=== PATIENT | male | born 1950 | race Caucasian/White ===

== ENCOUNTER → 2019-12-04 10:47 | Outpatient (BNVA) | payer MEDICARE, OTHER, SELFPAY | PROVIDERS: PCP Internal Medicine; Referring Provider Internal Medicine; Visit Provider Urology | DX: C61 Malignant neoplasm of prostate (principal) | CPT/HCPCS: 99212 ==

== ENCOUNTER 2019-12-24 07:31 | Outpatient (REF) | payer MEDICARE, OTHER, SELFPAY ==
[2019-12-24 07:37] VITALS: BP 135/90; PULSE 73; RESP 16; TEMP 36.1; O2SAT 99
[2019-12-24 07:44] VITALS: BMI 29.7
[2019-12-24 08:19] VITALS: BP 116/77; PULSE 69; RESP 16; O2SAT 97
--- NOTE | 2019-12-24 08:20 | PM.OP ---
Brief Operative Note Date of Service: 12/24/19 Pre-op diagnosis: Prostate cancer Post-op diagnosis: same Procedure: 1. transrectal ultrasound measurement of prostate 2. transrectal ultrasound-guided prostate nerve block 3. Transrectal ultrasound-guided prostate biopsy Surgeon: Jerardo Hendrix MD Anesthesia: local Estimated blood loss (mL): 0 Pathology: other ( a 12 core biopsy) Condition: stable Disposition: same day
--- NOTE | 2019-12-24 08:24 | W.PM.OPN ---
Operative Note Operative Note Date of Service: 12/24/19 Narrative: Preoperative diagnosis: Elevated PSA Postoperative diagnosis: Elevated PSA Procedure: 1. transrectal ultrasound measurement of prostate 2. transrectal ultrasound-guided pudendal nerve block 3. transrectal ultrasound-guided prostate biopsy 12 core Surgeon: Dr. Jerardo Hendrix Anesthetic: Local Indications for procedure: Elevated PSA Prostate Cancer Procedure: After informed consent was verified, the patient was brought into the procedure area and lay left-hand side down on the table. Patient identity confirmed. Perioperative antibiotics confirmed. Gel was placed per rectum Ultrasound probe was placed per rectum The prostate was measured in 3 dimensions Total volume equals 45 gm There were no cystic structures and no calcifications noted and the prostate was homogeneous in nature A ultrasound-guided pudendal nerve block was performed using 10 cc of 1% lidocaine. 8 cc was placed at the base and 2 cc of the apex. A 12 core biopsy was performed with 6 cores each side. Two cores were taken at the apex, mid and base. Cores were spaced between lateral and medial. He tolerated the procedure well. Was able to ambulate to bathroom after 5 minutes. Printed instructions regarding antibiotic use and common side effects such as low-grade temperature and bleeding were given. care was paid to target the right apex median area as highlighted through MRI
== END 2019-12-24 07:32 | disposition home or self-care (01) ==
LOC: HO.MS 07:31
PROVIDERS: PCP Internal Medicine; Visit Provider Urology
PROC: (CPT 55700; principal; 2019-12-24 08:00)
DX: C61 Malignant neoplasm of prostate (principal); G47.30 Sleep apnea, unspecified; Z79.899 Other long term (current) drug therapy
CPT/HCPCS: 55700; 76942; 88305; 88344

== ENCOUNTER → 2020-01-07 09:03 | Outpatient (BNVA) | payer MEDICARE, OTHER, SELFPAY | PROVIDERS: PCP Internal Medicine; Visit Provider Urology | DX: C61 Malignant neoplasm of prostate (principal); G47.30 Sleep apnea, unspecified | CPT/HCPCS: 99212; Q3014 ==

== ENCOUNTER → 2020-04-22 10:02 | Outpatient (BNVA) | payer MEDICARE, OTHER, SELFPAY | PROVIDERS: PCP Internal Medicine; Visit Provider Urology | DX: C61 Malignant neoplasm of prostate (principal) | CPT/HCPCS: 99212 ==

== ENCOUNTER → 2020-06-12 13:41 | Outpatient (BNVA) | payer MEDICARE, OTHER, SELFPAY | PROVIDERS: PCP Internal Medicine; Visit Provider Urology | DX: Z13.89 Encounter for screening for other disorder (principal) | CPT/HCPCS: Q3014 ==

== ENCOUNTER → 2020-10-22 10:43 | Outpatient (BNVA) | payer MEDICARE, OTHER, SELFPAY | PROVIDERS: PCP Internal Medicine; Visit Provider Urology | CPT/HCPCS: Q3014 ==

== ENCOUNTER → 2021-01-20 14:47 | Outpatient (BNVA) | payer MEDICARE, OTHER, SELFPAY | PROVIDERS: PCP Internal Medicine; Visit Provider Urology | DX: C61 Malignant neoplasm of prostate (principal) | CPT/HCPCS: Q3014 ==

== ENCOUNTER → 2021-05-04 08:43 | Outpatient (BNVA) | payer MEDICARE, OTHER, SELFPAY | PROVIDERS: PCP Internal Medicine; Visit Provider Urology | DX: Z13.89 Encounter for screening for other disorder (principal) | CPT/HCPCS: Q3014 ==

== ENCOUNTER → 2021-07-20 13:30 | Outpatient (BNVA) | payer MEDICARE, OTHER, SELFPAY | PROVIDERS: PCP Internal Medicine; Visit Provider Urology | DX: C61 Malignant neoplasm of prostate (principal) | CPT/HCPCS: Q3014 ==

== ENCOUNTER → 2021-10-20 13:03 | Outpatient (BNVA) | payer MEDICARE, OTHER, SELFPAY | PROVIDERS: PCP Internal Medicine; Visit Provider Urology | DX: C61 Malignant neoplasm of prostate (principal); N52.31 Erectile dysfunction following radical prostatectomy | CPT/HCPCS: Q3014 ==

== ENCOUNTER → 2022-01-25 13:56 | Outpatient (BNVA) | payer MEDICARE, OTHER, SELFPAY | PROVIDERS: PCP Internal Medicine; Visit Provider Urology | DX: C61 Malignant neoplasm of prostate (principal); N52.31 Erectile dysfunction following radical prostatectomy | CPT/HCPCS: Q3014 ==

== ENCOUNTER → 2022-05-25 13:41 | Outpatient (BNVA) | payer MEDICARE, OTHER, SELFPAY | PROVIDERS: PCP Internal Medicine; Visit Provider Urology | DX: C61 Malignant neoplasm of prostate (principal); N52.1 Erectile dysfunction due to diseases classified elsewhere; N40.1 Benign prostatic hyperplasia with lower urinary tract symptoms; N13.8 Other obstructive and reflux uropathy | CPT/HCPCS: Q3014 ==

== ENCOUNTER 2022-11-23 11:16 | Outpatient (AMB) | payer MEDICARE, OTHER, SELFPAY ==
--- NOTE | 2022-11-23 11:55 | A.OFFVIS_ITS ---
Intake Intake Visit Reasons: 6m/PSA(set) Intake Note: Patient presets today via tele visit for a follow-up on PSA lab results Medications: sildenafil Allergies to Antibiotic- No Known Allergies Blood Thinner- None Canvas Marker Required: No Information Interpreted: non-clinical & clinical Accompanied by: Self / Same As Patient Allergies No Known Allergies Allergy (Verified 11/23/22 11:57) HPI HPI Comments History of Present Illness Details Bernabe is a very pleasant male. He is a patient of Dr. Johnson. 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 PSA remains undetectable June space out to every 6 months for 5 years Erections are not relevant at this point Prostate cancer: Low volume disease, single intermediate core December 2019 robotic assisted prostatectomy June 2020 [facility] - pT3a unfavorable intermediate Initial therapy included Primary treatment ?Recent labs included 12/25 1.7, 05/26 1.8, 08/25 2.3, - 09/26 <0.1, 01/26 <0.1, 03/30 <0.05, 07/28 <0.1, 10/28 <0.1, 01/27 <0.1, 04/28 <0.1, 10/29 <0.1 Robotic assisted prostatectomy [facility] June 2020 [place] 4+3, negative margins, predominantly nerve-sparing pT3a margin at bladder neck Therapeutic plan: 6 month follow-up lab work Erectile dysfunction Post prostatectomy No longer relevant [facility] Medical History Arthritis Fatty liver Hyperlipidemia Elevated PSA Weak urinary stream Nocturia Benign prostatic hyperplasia with lower urinary tract symptoms Sleep apnea Surgical History History of surgery Review of Systems Const All systems reviewed & are unremarkable except as noted in HPI and below Reports no additional complaints Resp Reports no additional complaints GI Reports no additional complaints Reports as per HPI [facility] Reports no additional complaints Physical Exam Telemedicine evaluation Appropriate responses Regular breathing rate and rhythm HEENT Head: Yes normal to inspection Ears: hearing grossly normal bilaterally Eyes General: appearance normal, both eyes and all related structures Neck Neck: Yes normal visual inspection Chest Chest palpation & inspection: normal inspection of the chest Resp Effort & Inspection: normal respiratory effort and able to speak in complete sentences Assessment & Plan Assessment & Plan (1) Prostate CA: Comment: Ana 4 + 3 on robotic prostatectomy June 2020 Code(s): C61 - Malignant neoplasm of prostate (2) Erectile dysfunction after radical prostatectomy: Code(s): N52.31 - Erectile dysfunction following radical prostatectomy Plan Six month follow-up PSA Patient Instructions: Imaging studies, laboratory and physical exam results were discussed and reviewed in detail. No major barriers to patient understanding were identified. An opportunity to ask questions regarding the treatment plan was provided. All questions were answered. The patient expressed understanding and agreement with the above treatment plan. The patient is aware they should contact our office by phone for worsening of their current condition or the appearance of new urologic symptoms. Compliance is encouraged with any medications and followup testing that is ordered. It is a privilege to participate in the urologic care of your patient. If you have any questions or concerns regarding treatment for the above conditions, or other urologic issues, please do not hesitate to contact me. The office telephone contact is [phone]. This note is constructed using voice recognition software. While every effort mays s been made to ensure accuracy sewing machine repairer errors may have been included. Yours sincerely, Dr Jerardo Hendrix MD, PABLO [facility] - Urology Providers of Expert, Compassionate Care for the Genitourinary System Telehealth Telehealth Location of provider rendering services: practice address Location of patient: address on file Patient Identification confirmed using: Name, : Yes Telehealth method: video Patient verbally consented to treatment: Yes Patient verbally consented to billing insurance company: Yes Patient informed of any privacy concerns related to visit: Yes Coding Level of Care Code Tele Est Pt Level 3 (76795) Diagnoses Prostate CA C61 Erectile dysfunction after radical prostatectomy N52.31
== END 2022-11-23 14:49 | disposition home or self-care (01) ==
LOC: HO.HUSH 11:16
PROVIDERS: PCP Internal Medicine; Visit Provider Urology
DX: N52.31 Erectile dysfunction following radical prostatectomy (principal); Z85.46 Personal history of malignant neoplasm of prostate
CPT/HCPCS: 99213

== ENCOUNTER → 2022-11-23 11:16 | Outpatient (BNVA) | payer MEDICARE, OTHER, SELFPAY | PROVIDERS: PCP Internal Medicine; Visit Provider Urology ==

== ENCOUNTER 2023-05-23 13:49 | Outpatient (AMB) | payer MEDICARE, OTHER, SELFPAY ==
--- NOTE | 2023-05-23 13:50 | MHC.OFFVIS ---
Intake Intake Visit Reasons: 6M PSA(set)Confirmed Intake Note: Patient is Present for Telephone Follow Up Urology Med:Sildenafil Antibiotic Allergy: None Blood Thinner:None Allergies No Known Allergies Allergy (Verified 05/23/23 13:52) Medication List - Last Reconciled 05/23/23 by Jerardo Hendrix MD atorvastatin mg PO cholecalciferol (vitamin D3) 50 mcg PO DAILY omeprazole 20 mg PO DAILY sildenafil (Viagra) 100 mg PO DAILY PRN HPI HPI Comments History of Present Illness Details Bernabe is a very pleasant male. He is a patient of Dr. Johnson. He seen for the following urologic conditions - prostate cancer - erectile dysfunction Telemedicine Evaluation 15 min Consultation [employer] Video Now on q.6 month surveillance PSA remains undetectable Good control of urination Prostate cancer: Low volume disease, single intermediate core December 2019 robotic assisted prostatectomy June 2020 [facility] - pT3a unfavorable intermediate Initial therapy included Primary treatment ?Recent labs included 12/25 1.7, 05/26 1.8, 08/25 2.3, - 09/26 <0.1, 01/26 <0.1, 03/30 <0.05, 07/28 <0.1, 10/28 <0.1, 01/27 <0.1, 04/28 <0.1, 10/29 <0.1, 05/30 <0.1 Robotic assisted prostatectomy [facility] June 2020 [place] 4+3, negative margins, predominantly nerve-sparing pT3a margin at bladder neck Therapeutic plan: 6 month follow-up lab work Erectile dysfunction Post prostatectomy No longer relevant [facility] Medical History Arthritis Fatty liver Hyperlipidemia Elevated PSA Weak urinary stream Nocturia Benign prostatic hyperplasia with lower urinary tract symptoms Sleep apnea Surgical History History of surgery Review of Systems Const All systems reviewed & are unremarkable except as noted in HPI and below Reports no additional complaints Resp Reports no additional complaints GI Reports no additional complaints Reports as per HPI Musc Reports no additional complaints Physical Exam Telemedicine evaluation Appropriate responses Regular breathing rate and rhythm HEENT Head: Yes normal to inspection Ears: hearing grossly normal bilaterally Eyes General: appearance normal, both eyes and all related structures Neck Neck: Yes normal visual inspection Chest Chest palpation & inspection: normal inspection of the chest Resp Effort & Inspection: normal respiratory effort and able to speak in complete sentences Assessment & Plan Assessment & Plan (1) Prostate CA: Comment: Ana 4 + 3 on robotic prostatectomy June 2020 Code(s): C61 - Malignant neoplasm of prostate (2) Erectile dysfunction after radical prostatectomy: Code(s): N52.31 - Erectile dysfunction following radical prostatectomy Plan Six-month follow-up PSA office Orders: Orders Prostate Specific Antigen 6 Months C61 - Malignant neoplasm of prostate Patient Instructions: Imaging studies, laboratory and physical exam results were discussed and reviewed in detail. No major barriers to patient understanding were identified. An opportunity to ask questions regarding the treatment plan was provided. All questions were answered. The patient expressed understanding and agreement with the above treatment plan. The patient is aware they should contact our office by phone for worsening of their current condition or the appearance of new urologic symptoms. Compliance is encouraged with any medications and followup testing that is ordered. It is a privilege to participate in the urologic care of your patient. If you have any questions or concerns regarding treatment for the above conditions, or other urologic issues, please do not hesitate to contact me. The office telephone contact is [phone]. This note is constructed using voice recognition software. While every effort has been made to ensure accuracy senior supplier quality engineer errors may have been included. Yours sincerely, Dr Jerardo Hendrix MD, PABLO [facility] - Urology Providers of Expert, Compassionate Care for the Genitourinary System Telehealth Telehealth Location of provider rendering services: practice address Location of patient: address on file Patient Identification confirmed using: Name, : Yes Telehealth method: video Patient verbally consented to treatment: Yes Patient verbally consented to billing insurance company: Yes Patient informed of any privacy concerns related to visit: Yes Minutes spent on Phone/Video with Pt.: 15 Coding Level of Care Code Tele Est Pt Level 3 (12411) Diagnoses Prostate CA C61 Erectile dysfunction after radical prostatectomy N52.31
== END 2023-05-23 14:11 | disposition home or self-care (01) ==
LOC: HO.HUSH 13:49
PROVIDERS: PCP Internal Medicine; Visit Provider Urology
DX: C61 Malignant neoplasm of prostate (principal); N52.31 Erectile dysfunction following radical prostatectomy
CPT/HCPCS: 99213

== ENCOUNTER → 2023-05-23 13:49 | Outpatient (BNVA) | payer MEDICARE, OTHER, SELFPAY | PROVIDERS: PCP Internal Medicine; Visit Provider Urology ==

== ENCOUNTER 2023-11-21 13:46 | Outpatient (AMB) | payer MEDICARE, OTHER, SELFPAY ==
--- NOTE | 2023-11-21 13:42 | MHC.OFFVIS ---
Intake Visit Reasons: 6M PSA(PSA?)[facility] Intake Note: Patient is Present for 6m PSA Follow Up Urology Med:Sildenafil Antibiotic Allergy: None Blood Thinner:None Roof Technician Required: No Allergies No Known Allergies Allergy (Verified 11/21/23 13:43) HPI Comments Details: Bernabe is a very pleasant male. He is a patient of Dr. Johnson. He seen for the following urologic conditions - prostate cancer - erectile dysfunction Telemedicine Evaluation 15 min Consultation [employer] Video Now on q.6 month surveillance PSA remains undetectable Good control of urination Prostate cancer: Low volume disease, single intermediate core December 2019 robotic assisted prostatectomy June 2020 [facility] - pT3a unfavorable intermediate Initial therapy included Primary treatment ?Recent labs included 12/25 1.7, 05/26 1.8, 08/25 2.3, - 09/26 <0.1, 01/26 <0.1, 03/30 <0.05, 07/28 <0.1, 10/28 <0.1, 01/27 <0.1, 04/28 <0.1, 10/29 <0.1, 05/30 <0.1, 11/29 pending Robotic assisted prostatectomy [facility] June 2020 [place] 4+3, negative margins, predominantly nerve-sparing pT3a margin at bladder neck Therapeutic plan: 6 month follow-up lab work Erectile dysfunction Post prostatectomy No longer relevant [facility] Medical History Arthritis Fatty liver Hyperlipidemia Elevated PSA Weak urinary stream Nocturia Benign prostatic hyperplasia with lower urinary tract symptoms Sleep apnea Surgical History History of surgery Review of Systems Const All systems reviewed & are unremarkable except as noted in HPI and below Reports no additional complaints Resp Reports no additional complaints GI Reports no additional complaints Reports as per HPI Musc Reports no additional complaints Physical Exam Telemedicine evaluation Appropriate responses Regular breathing rate and rhythm HEENT Head: Yes normal to inspection Ears: hearing grossly normal bilaterally Eyes General: appearance normal, both eyes and all related structures Neck Neck: Yes normal visual inspection Chest Chest palpation & inspection: normal inspection of the chest Resp Effort & Inspection: normal respiratory effort and able to speak in complete sentences Telehealth Telehealth Telehealth Platform: [employer] Location of provider rendering services: practice address Location of patient: address on file Patient Identification confirmed using: Name, : Yes Telehealth method: video Patient verbally consented to treatment: Yes Patient verbally consented to billing insurance company: Yes Patient informed of any privacy concerns related to visit: Yes Minutes spent on Phone/Video with Pt.: 15 Assessment & Plan Assessment & Plan (1) Prostate CA: Comment: Ana 4 + 3 on robotic prostatectomy June 2020 Code(s): C61 - Malignant neoplasm of prostate Category: Medical (2) Erectile dysfunction after radical prostatectomy: Code(s): N52.31 - Erectile dysfunction following radical prostatectomy Category: Medical Plan Six-month follow-up Orders: Orders Prostate Specific Antigen 6 Months C61 - Malignant neoplasm of prostate Patient Instructions: Imaging studies, laboratory and physical exam results were discussed and reviewed in detail. No major barriers to patient understanding were identified. An opportunity to ask questions regarding the treatment plan was provided. All questions were answered. The patient expressed understanding and agreement with the above treatment plan. The patient is aware they should contact our office by phone for worsening of their current condition or the appearance of new urologic symptoms. Compliance is encouraged with any medications and followup testing that is ordered. It is a privilege to participate in the urologic care of your patient. If you have any questions or concerns regarding treatment for the above conditions, or other urologic issues, please do not hesitate to contact me. The office telephone contact is [phone]. This note is constructed using voice recognition software. While every effort has been made to ensure accuracy special events assistant errors may have been included. Yours sincerely, Dr Jerardo Hendrix MD, PABLO [facility] - Urology Providers of Expert, Compassionate Care for the Genitourinary System Coding Level of Care Code Tele Est Pt Level 3 (78406) Diagnoses Prostate CA C61 Erectile dysfunction after radical prostatectomy N52.31
== END 2023-11-21 15:23 | disposition home or self-care (01) ==
LOC: HO.HUSH 13:46
PROVIDERS: PCP Internal Medicine; Visit Provider Urology
DX: C61 Malignant neoplasm of prostate (principal); N52.31 Erectile dysfunction following radical prostatectomy
CPT/HCPCS: 99213

== ENCOUNTER → 2023-11-21 13:46 | Outpatient (BNVA) | payer MEDICARE, OTHER, SELFPAY | PROVIDERS: PCP Internal Medicine; Visit Provider Urology ==

== ENCOUNTER 2024-05-29 10:42 | Outpatient (AMB) | payer MEDICARE, OTHER, SELFPAY ==
--- NOTE | 2024-05-29 10:42 | A.OFFVIS_ITS ---
Intake Visit Reasons: 6M PSA(psa?) Intake Note: Patient is present for 6M/PSA Urology Medication:SILDENAFIL Antibiotic Allergy:NONE Blood Thinner:NONE Air Control/Anti Air Warfare Officer Required: No Allergies No Known Allergies Allergy (Verified 05/29/24 10:44) HPI Comments Details: Bernabe is a very pleasant male. He is a patient of Dr. Johnson. He seen for the following urologic conditions - prostate cancer - erectile dysfunction Telemedicine Evaluation 15 min Consultation [employer] Video Now on q.6 month surveillance PSA remains undetectable Good control of urination Due to pT3a disease will require six-month follow-up for 10 years Prostate cancer: Low volume disease, single intermediate core December 2019 robotic assisted prostatectomy June 2020 [facility] - pT3a unfavorable intermediate Initial therapy included Primary treatment ?Recent labs included 12/25 1.7, 05/26 1.8, 08/25 2.3, - 09/26 <0.1, 01/26 <0.1, 03/30 <0.05, 07/28 <0.1, 10/28 <0.1, 01/27 <0.1, 04/28 <0.1, 10/29 <0.1, 05/30 <0.1, 11/29 <0.1, 05/31 <0.1 Robotic assisted prostatectomy [facility] June 2020 [place] 4+3, negative margins, predominantly nerve-sparing pT3a margin at bladder neck Therapeutic plan: 6 month follow-up lab work Erectile dysfunction Post prostatectomy No longer relevant [facility] Medical History Arthritis Fatty liver Hyperlipidemia Elevated PSA Weak urinary stream Nocturia Benign prostatic hyperplasia with lower urinary tract symptoms Sleep apnea Surgical History History of surgery Review of Systems Const All systems reviewed & are unremarkable except as noted in HPI and below Reports no additional complaints Resp Reports no additional complaints GI Reports no additional complaints Reports as per HPI Musc Reports no additional complaints Physical Exam Telemedicine evaluation Appropriate responses Regular breathing rate and rhythm HEENT Head: Yes normal to inspection Ears: hearing grossly normal bilaterally Eyes General: appearance normal, both eyes and all related structures Neck Neck: Yes normal visual inspection Chest Chest palpation & inspection: normal inspection of the chest Resp Effort & Inspection: normal respiratory effort and able to speak in complete sentences Telehealth Telehealth Telehealth Platform: [employer] Location of provider rendering services: practice address Location of patient: address on file Patient Identification confirmed using: Name, : Yes Telehealth method: video Patient verbally consented to treatment: Yes Patient verbally consented to billing insurance company: Yes Patient informed of any privacy concerns related to visit: Yes Minutes spent on Phone/Video with Pt.: 15 Assessment & Plan Assessment & Plan (1) Prostate CA: Comment: Ana 4 + 3 on robotic prostatectomy June 2020 Code(s): C61 - Malignant neoplasm of prostate Category: Medical (2) Erectile dysfunction after radical prostatectomy: Code(s): N52.31 - Erectile dysfunction following radical prostatectomy Category: Medical Plan Six-month follow-up Orders: Orders Prostate Specific Antigen 6 Months C61 - Malignant neoplasm of prostate Patient Instructions: This note is constructed using voice recognition software. While every effort has been made to ensure accuracy police commissioner errors may have been included. Imaging studies, laboratory and physical exam results were discussed and reviewed in detail. No major barriers to patient understanding were identified. An opportunity to ask questions regarding the treatment plan was provided. All questions were answered. The patient expressed understanding and agreement with the above treatment plan. The patient is aware they should contact our office by phone for worsening of their current condition or the appearance of new urologic symptoms. Compliance is encouraged with any medications and followup testing that is ordered. It is a privilege to participate in the urologic care of your patient. If you h ave any questions or concerns regarding treatment for the above conditions, or other urologic issues, please do not hesitate to contact me. The office telephone contact is [phone]. Sincerely, Dr Jerardo Hendrix MD, PABLO [facility] - Urology Compassionate Specialist Care for the Genitourinary System Coding Level of Care Code Tele Est Pt Level 3 (85099) Complex EM visit Add On G2211 Diagnoses Prostate CA C61 Erectile dysfunction after radical prostatectomy N52.31
--- OUTSIDE RECORDS SUMMARY | 2024-05-29 12:42 | XMS_ITS ---
Author Organization [facility] Address [address] [place] [address] Care Team Providers Care Final Inspector Paper Name Role Phone JOHNSON, VISHNU Primary Care Provider [phone] REASON FOR REFERRAL Reason [facility] Diagnosis 1 Encounter for examin ation of ears and hearing without abnormal findings (Z01.10) Referral Organization [facility] Referring Provider First Name VISHNU Referring Provider Last Name JOHNSON Referring Provider Speciality Internal M edicine Referred Provider Specialty Ear, nose an d throat surgeon General Notes Amber Contreras 11:24:06 AM > Referral and attachments faxed to [phone] and pt given phone [phone] to call and make an appt. Clinical Notes Debi Sierra 02:53:43 PM > Scheduled for 05/31 at 9:45 am. pt aware Referral Priority Routine Reason [facility] and Rectal [facility] ([facility]) Diagnosis 1 Bleeding (R58) Referral Organization [facility] Referring Provider First Name VISHNU Referring Provider Last Name JOHNSON Referring Provider Speciality Internal M edicine Referred Provider Specialty Colorectal S urgery General Notes Amber Contreras 11:27:09 AM > Referral and attachments faxed to [phone] and pt given phone [phone] to call and make an appt. Clinical Notes Debi Sierra 01:49:17 PM > Patient was seen on 04/15 Referral Priority Routine REASON FOR VISIT patient presents for MWV with labs; pt has ongoing concerns of hemorrhoids; also concerned with possible hearing loss; pt states he has HCP, asked pt to bring in for us to place in chart MEDICATIONS Medication SIG (Take, Route, Frequency, Duration) Notes Start Date End Date Status D3 Super Strength 50 MCG (1999) TAKE 1 CAPSULE BY MOUTH EVERY DAY for 90 Active ZyrTEC Allergy 10 MG 1 tablet Orally Onc e a day Active buPROPion HCl 75 MG 2 tablets Orally Onc e a day for 90 days 10/10/2023 Active Atorvastatin Calcium 40 MG TAKE 1 TABLET BY MOUTH EVERY DAY for 90 Active Omeprazole 20 MG TAKE 1 CAPSULE BY LA UTH 30 MINUTES BEFORE MORNING MEAL every other day for 90 days Active Flonase Active Aspir-81 81 MG 1 tablet Orally Once a day for 30 day(s) Active Sildenafil Citrate 20 MG 1 tablet Orally Once a day Active SOCIAL HISTORY Tobacco Use: Social History Observation Description Date Details (start date - stop date) Former Smoker NA - NA Sex Assigned At : Social History Observation Description Sex Assigned At Unknown Tobacco Use/Smoking Question Answer Notes Are you a former smoker Section Notes: does not smoke or abuse alco hol VITAL SIGNS Blood pressure systolic 136 mm Hg 04/04/19 25 Blood pressure diastolic 76 mm Hg 025 Heart Rate 73 /min 04/04/2024 Height 70 in 04/04/2024 Weight 213.7 lbs 04/04/2024 BMI 30.66 kg/m2 04/04/2024 Oximetry 98 % 04/04/2024 Encounters Encounter Location Date Provider Diagnosis [place] [id number] [address] 04/04/2024 DIGNASTEVIE JOHNSON Hypolipidemia E78.6 and Annual physical exam Z00.00 ASSESSMENTS Encounter Date Diagnosis Assessment Notes Treatment Notes Treatment Clinical Notes Section Notes 04/04/2024 Hypolipidemia (ICD-10 - E78.6) He patient seen and examined. Comprehensive discussion was done on the following. 1. Nutrition: It is important to follow a healthy diet based on lots of vegetables and legumes and good fat. Avoid processed food and processed carbohydrates. Learn to prepare your own meals. Learn to read labels and avoid high fructose corn syrup, processed chemicals added to increase shelf life and preprepared meals. Avoid fast foods. Learn to eat slowly and plan meals for a week. Try to count calories and be mindful off daily calorie intake. Get into the habit of keeping an eye on your weight by using an appropriate scale. Learn to log exercise and discussed fitness Apps like [employer] which can help keep log off calories taken versus calories burned. Local food should be preferred. Discussed Dirty Dozen Versus Clean Fifteen. Discussed healthy supplements like fish oil, Tumeric, Curcumin, Melatonin, Resveratrol, Probiotics, Vitamin-D, Alpha-Lipoic acid, Vitamin-D and coconut oil. 2. It is important to exercise regularly. Is a good habit to walk at least 30-45 minutes a day. Gentle weightlifting with standard precautions to protect the back. Finding activity like cycling or hiking and get into the habit of engaging in it. Stretching before and after the exercises important. It is also important to contact me if there are any problems like shortness of breath, chest pain, back pain and joint or muscle pain associated with the exercise. 3. Discussed age appropriate screening guidelines. Colonoscopy needs to start at age 50 with stool for occult blood as appropriate. There is a new test that can test for genetic abnormalities in the stool sample. This would not replace a colonoscopy but could be used as a screening tool for patients who do not want a colonoscopy. We discussed the importance of early detection of colon cancer. 4. Discussed current PSA screening. PSA screening can be done in most patients between age 50 and 65. However early detection of prostate cancer needs to carefully be balanced with complications with treatment. These include incontinence, impotence etc. Each patient should decide if they would like to have this test. 5. Discussed safe driving and no use of smart phone while driving 6. Age-appropriate immunizations were discussed. A tetanus booster is needed every 10 years. Flu vaccine is recommended every year just before the start of the flu season. Shingles vaccine is recommended after age 50 but not all insurances cover it. Pneumonia vaccine is given after age 65 unless there are certain comorbidities for which it is started earlier. 7. Diagnostic labs were discussed. These could include CBC CMP and lipids with fasting blood glucose and insulin levels. Vitamin D and hemoglobin A1c testing might be appropriate. 8. Patient has bupropion and mental health resources if he wants to use it8. Currently does not want to use Bupropion. We need to follow-up on whether he gets the RSV or shingles vaccine. He will follow-up in 6 months with fasting labs note that he has history of prostate cancer and PSA was undetectable 04/04/2024 Annual physical exam (ICD-10 - Z00.00) He patient seen and examined. Comprehensive discussion was done on the following. 1. Nutrition: It is important to follow a healthy diet based on lots of vegetables and legumes and good fat. Avoid processed food and processed carbohydrates. Learn to prepare your own meals. Learn to read labels and avoid high fructose corn syrup, processed chemicals added to increase shelf life and preprepared meals. Avoid fast foods. Learn to eat slowly and plan meals for a week. Try to count calories and be mindful off daily calorie intake. Get into the habit of keeping an eye on your weight by using an appropriate scale. Learn to log exercise and discussed fitness Apps like [employer] which can help keep log off calories taken versus calories burned. Local food should be preferred. Discussed Dirty Dozen Versus Clean Fifteen. Discussed healthy supplements like fish oil, Tumeric, Curcumin, Melatonin, Resveratrol, Probiotics, Vitamin-D, Alpha-Lipoic acid, Vitamin-D and coconut oil. 2. It is important to exercise regularly. Is a good habit to walk at least 30-45 minutes a day. Gentle weightlifting with standard precautions to protect the back. Finding activity like cycling or hiking and get into the habit of engaging in it. Stretching before and after the exercises important. It is also important to contact me if there are any problems like shortness of breath, chest pain, back pain and joint or muscle pain associated with the exercise. 3. Discussed age appropriate screening guidelines. Colonoscopy needs to start at age 50 with stool for occult blood as appropriate. There is a new test that can test for genetic abnormalities in the stool sample. This would not replace a colonoscopy but could be used as a screening tool for patients who do not want a colonoscopy. We discussed the importance of early detection of colon cancer. 4. Discussed current PSA screening. PSA screening can be done in most patients between age 50 and 65. However early detection of prostate cancer needs to carefully be balanced with complications with treatment. These include incontinence, impotence etc. Each patient should decide if they would like to have this test. 5. Discussed safe driving and no use of smart phone while driving 6. Age-appropriate immunizations were discussed. A tetanus booster is needed every 10 years. Flu vaccine is recommended every year just before the start of the flu season. Shingles vaccine is recommended after age 50 but not all insurances cover it. Pneumonia vaccine is given after age 65 unless there are certain comorbidities for which it is started earlier. 7. Diagnostic labs were discussed. These could include CBC CMP and lipids with fasting blood glucose and insulin levels. Vitamin D and hemoglobin A1c testing might be appropriate. 8. Patient has bupropion and mental health resources if he wants to use it8. Currently does not want to use Bupropion. We need to follow-up on whether he gets the RSV or shingles vaccine. He will follow-up in 6 months with fasting labs note that he has history of prostate cancer and PSA was undetectable PLAN OF TREATMENT Pending Test Test Name Order Date COMPREHENSIVE METABOLIC PANEL 04/04/2024 CBC (INCLUDES DIFF/PLT) 04/04/2024 Referrals Referral Date Details [facility] ([facility] ([facility]) Next Appt Details Provider Name:NINFA HERCULES, 09/25/2024 08:00:00 AM, [address] [facility], [facility] [address], [place], [address], Progress Notes * SARWAT JUAREZ WDOB:[birth year] (73 yo M)Acc No.[id number]:04/04/2024 Progress Note Patient:??SARWAT JUAREZ W Provider:??Vishnu Johnson MD :1950?Age:73 Y?Sex:Javi turcios Date:04/04/2024 Address: [facility], [id number] Subjective: * Chief Complaints: * ?1. patient presents fo r MWV with labs; pt has ongoing concerns of hemorrhoids; also concerned with possible hearing loss; pt states he has HCP, asked pt to bring in for us to place in chart. * HPI: ?Constitutional:? Patient seen and examined. Chart was reviewed and edited. Medications were reviewed. Problem list reviewed updated. Allergies reviewed. Social history reviewed. Reviewed recent labs and imaging validation consultant notes. 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 Patient needs to get updated on shingles vaccine and RSV vaccine he is reluctant but after detailed discussion is willing to consider it at the pharmacy. Patient has bilateral osteoarthritis of the knees status post left knee surgery and right knee injections. This is currently stable. Patient continues to have issues with healing and will be referred to a hearing evaluation. Patient also has issues with the hemorrhoids and will see colorectal surgery. Healthcare proxy was discussed again with the patient he continues to be agitated. His agitation stems from his and her attitude since getting COVID. He believes she has long COVID. There is a lot of frustration and he is also suffering from loneliness and I recommended to reach out to other men friends. Patient does enjoy fishing and is considering joining a senior center.PHQ-9 was 5 ?Audit used And is negative and scanned separately healthcare proxy ?In [place] order of life-sustaining treatment discussed. * ROS:?Constitutional: +Headaches, Patient denies any excessive fatigue with exercise, no weight loss, no fever and no night sweats ???Eyes: No eye discharge, no itching, no redness. ???Ear nose throat: No sore throat, +postnasal drip, +runny nose, +congestion, Sneezing ???Cardiovascular: No chest pain, no shortness of breath, no dyspnea on exertion, no PND, no orthopnea, no irregular pulse ???Respiratory: No chronic cough, no hemoptysis, no sputum, no wheezing ???GI, no diarrhea, no constipation no blood in the stools, no pain associated with eating, no indigestion ???Genitourinary: No painful urination no hesitancy no blood in the urine ???Musculoskeletal, no limitations to walking and running, no joint deformity, no joint stiffness, no chronic back pain, no noise with joint movement ???Integumentary, no new skin rash. No new changes in skin moles ???Neurological: No history of seizures, memory loss, No language dysfunction, No inability to concentrate, no localized weakness, no sensation loss, no confusion ???Psychiatric: No depression, no suicidal thoughts, no anxiety ???Endocrine: No polyuria no polyphagia or polydipsia, no heat intolerance no cold intolerance ???Hematological: No easy bruising or Lymph node swelling. * Medical History:??Hyperlipid emia, Acid reflux, Prostate ca. * Surgical History:??carpal tu nnel release , colonoscopy Dr Antonio repeat 10 yrs 07/14/2008. * Family History:??Father: dec eased, diagnosed with Unspecified heart disease.??Spouse: alive.??Mother: , diagnosed with Diabetes mellitus without mention of complication, type II or unspecified type, not stated as uncontrolled.?? no significant family history. * Social History:?Tobacco Use:??Tobacco Use/Smoking??Are you a??former smoker.?does not smoke or abuse alcohol. * Medications:??Taking Flonase , Taking Omeprazole 20 MG Capsule Delayed Release TAKE 1 CAPSULE BY MOUTH 30 MINUTES BEFORE MORNING MEAL every other day , Taking Sildenafil Citrate 20 MG Tablet 1 tablet Orally Once a day , Taking Aspir-81 81 MG Tablet Delayed Release 1 tablet Orally Once a day , Taking ZyrTEC Allergy 10 MG Tablet 1 tablet Orally Once a day , Taking D3 Super Strength 50 MCG (2000 UT) Capsule TAKE 1 CAPSULE BY MOUTH EVERY DAY , Taking Atorvastatin Calcium 40 MG Tablet TAKE 1 TABLET BY MOUTH EVERY DAY , Taking buPROPion HCl 75 MG Tablet 2 tablets Orally Once a day , Discontinued Paxlovid (300/100) 20 x 150 MG & 10 x 100MG Tablet Therapy Pack 3 tablets Orally Twice a day , Medication List reviewed and reconciled with the patient Objective: * Vitals:??HR:73/min, BP:136/7 6mm Hg, Wt:213.7lbs, BMI:30.66Index, Ht: 70 in, Oxygen sat %:98%. * Physical Examination:?Patient seen and examined ?Vitals noted ?Head and ENT: PERRLA EOMI, neck supple, good range of motion, thyroid within normal limits. No sinus tenderness. ?Cardiovascular system S1 and S2 with no murmur or gallop or rubs. ?Lungs clear to percussion and auscultation ?Abdomen soft positive bowel sounds no hepatosplenomegaly ?Extremities no edema. ?Neuro: No gross deficit, sensation and power intact. . Reflexes appear normal ?Gait appears age-appropriate ?Skin exam shows no rashes. Assessment: * Assessment: 1.??Annual physical exam - Z 00.00 (Primary)??2.??Hypolipidemia - E78.6?? He patient seen and examined . Comprehensive discussion was done on the following. 1. Nutrition: It is important to follow a healthy diet based on lots of vegetables and legumes and good fat. Avoid processed food and processed carbohydrates. Learn to prepare your own meals. Learn to read labels and avoid high fructose corn syrup, processed chemicals added to increase shelf life and preprepared meals. Avoid fast foods. Learn to eat slowly and plan meals for a week. Try to count calories and be mindful off daily calorie intake. Get into the habit of keeping an eye on your weight by using an appropriate scale. Learn to log exercise and discussed fitness Apps like [employer] which can help keep log off calories taken versus calories burned. Local food should be preferred. Discussed Dirty Dozen Versus Clean Fifteen. Discussed healthy supplements like fish oil, Tumeric, Curcumin, Melatonin, Resveratrol, Probiotics, Vitamin-D, Alpha-Lipoic acid, Vitamin-D and coconut oil. 2. It is important to exercise regularly. Is a good habit to walk at least 30-45 minutes a day. Gentle weightlifting with standard precautions to protect the back. Finding activity like cycling or hiking and get into the habit of engaging in it. Stretching before and after the exercises important. It is also important to contact me if there are any problems like shortness of breath, chest pain, back pain and joint or muscle pain associated with the exercise. 3. Discussed age appropriate screening guidelines. Colonoscopy needs to start at age 50 with stool for occult blood as appropriate. There is a new test that can test for genetic abnormalities in the stool sample. This would not replace a colonoscopy but could be used as a screening tool for patients who do not want a colonoscopy. We discussed the importance of early detection of colon cancer. 4. Discussed current PSA screening. PSA screening can be done in most patients between age 50 and 65. However early detection of prostate cancer needs to carefully be balanced with complications with treatment. These include incontinence, impotence etc. Each patient should decide if they would like to have this test. 5. Discussed safe driving and no use of smart phone while driving 6. Age-appropriate immunizations were discussed. A tetanus booster is needed every 10 years. Flu vaccine is recommended every year just before the start of the flu season. Shingles vaccine is recommended after age 50 but not all insurances cover it. Pneumonia vaccine is given after age 65 unless there are certain comorbidities for which it is started earlier. 7. Diagnostic labs were discussed. These could include CBC CMP and lipids with fasting blood glucose and insulin levels. Vitamin D and hemoglobin A1c testing might be appropriate. 8. Patient has bupropion and mental health resources if he wants to use it8. Currently does not want to use Bupropion. We need to follow-up on whether he gets the RSV or shingles vaccine. He will follow-up in 6 months with fasting labs note that he has history of prostate cancer and PSA was undetectable. Plan: * Treatment: 2.??Others? Referral To:Ear, nose and throat surgeon ?Reason:[facility] ([facility]) ? Referral To:Colorectal Surgery ?Reason:[facility] ([facility]) * Procedure Codes:??G0439 HARESH AL WELLNESS VST; PPS SUBSQT VST, G0444 ANNUAL DEPRESSION SCREENING 15 MIN, Modifiers: 59 , G0442 ANNUAL ALCOHOL MISUSE SCREEN 15 MIN, Modifiers: 59 , 42659 ADVNCD CARE PLAN 30 MIN, Modifiers: 33 * Images: Billing Information: * Visit Code:?? * Procedure Codes:?? G0439 ANNUAL WELLNESS VST; PPS SUBSQT VST. G0444 ANNUAL DEPRESSION SCREENING 15 MIN. Modifiers: 59 G0442 ANNUAL ALCOHOL MISUSE SCREEN 15 MIN. Modifiers: 59 [id number] ADVNCD CARE PLAN 30 MIN. Modifiers: 33 Care Plan Details* * Sign off status: Completed true * Provider:??Vishnu Johnson MD Date:??04/04 History and Physical Notes * HPI (History of Present Illness) Category Sub-Category Detail Notes Category Not es Constitutional Patient seen and examined. Chart was reviewed and edited. Medications were reviewed. Problem list reviewed updated. Allergies reviewed. Social history reviewed. Reviewed recent labs and imaging validation consultant notes. 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 Patient needs to get updated on shingles vaccine and RSV vaccine he is reluctant but after detailed discussion is willing to consider it at the pharmacy. Patient has bilateral osteoarthritis of the knees status post left knee surgery and right knee injections. This is currently stable. Patient continues to have issues with healing and will be referred to a hearing evaluation. Patient also has issues with the hemorrhoids and will see colorectal surgery. Healthcare proxy was discussed again with the patient he continues to be agitated. His agitation stems from his and her attitude since getting COVID. He believes she has long COVID. There is a lot of frustration and he is also suffering from loneliness and I recommended to reach out to other men friends. Patient does enjoy fishing and is considering joining a senior center.PHQ-9 was 5 Audit used And is negative and scanned separately healthcare proxy In [place] order of life-sustaining treatment discussed Physical Examination Category Sub-Category Detail Notes Section Note s Patient seen and examined Vitals noted Head and ENT: PERRLA EOMI, neck supple, good range of motion, thyroid within normal limits. No sinus tenderness. Cardiovascular system S1 and S2 with no murmur or gallop or rubs. Lungs clear to percussion and auscultation Abdomen soft positive bowel sounds no hepatosplenomegaly Extremities no edema. Neuro: No gross deficit, sensation and power intact. . Reflexes appear normal Gait appears age-appropriate Skin exam shows no rashes Consultation Request Notes Referral Date Referring Provider Referred Provider Not es 04/04/2024 V[facility] JOHNSON [facility] 04/04/2024 VISHNU JOHNSON , [facility]a [facility] ([facility])
--- OUTSIDE RECORDS SUMMARY | 2024-05-29 12:42 | XMS_ITS ---
Author Organization [facility] Address [address] [place] [address] Care Team Providers Care Embosser Apprentice Name Role Phone ZHEN JARRETT Primary Care Provider REASON FOR VISIT Bloodwork Encounters Encounter Location Date Provider Diagnosis [facility] [address] [address] 02/28/2024 ZHEN JARRETT Hyperlipidemia, unspecified E78.5 ; Essential (primary) hypertension I10 ; Benign prostatic hyperplasia with lower urinary tract symptoms N40.1 ; Adult general medical exam Z00.00 ; Morbid obesity E66.01 and Vitamin D deficiency E55.9 ASSESSMENTS Encounter Date Diagnosis Assessment Notes Treatment Notes Treatment Clinical Notes Section Notes 02/28/2024 Hyperlipidemia, unspecified (ICD-10 - E78.5) 02/28/2024 Essential (primary) hypertension (ICD-10 - I10) 02/28/2024 Benign prostatic hyperplasia with lower urinary tract symptoms (ICD-10 - N40.1) 02/28/2024 Adult general medical exam (ICD-10 - Z00.00) 02/28/2024 Morbid obesity (ICD-10 - E66.01) 02/28/2024 Vitamin D deficiency (ICD-10 - E55.9) PLAN OF TREATMENT Pending Test Test Name Order Date LIPID PANEL, STANDARD 02/28/2024 COMPREHENSIVE METABOLIC PANEL 02/28/2024 CBC (INCLUDES DIFF/PLT) 02/28/2024 URINALYSIS, COMPLETE W/REFLEX TO CULTURE 02/28/2024 PSA (FREE AND TOTAL) 02/28/2024 TSH 02/28/2024 VITAMIN D,25-OH,TOTAL,IA 02/28/2024 Next Appt Details Provider Name:NINFA HERCULES, 09/25/2024 08:00:00 AM, [address] [facility], [facility] [address], [place], [address], Progress Notes * SARWAT JUAREZ WDOB:[birth year] (73 yo M)Acc No.[id number]:02/28/2024 Patient:??SARWAT JUAREZ W :1950?Age:73 Y?Sex:Javi turcios Address:[address] [place] [address] [place] [address] Subjective: * Chief Complaints: * ?Bloodwork * Medical History:?? * Surgical History:?? * Hospitalization/Major Diagno stic Procedure:?? * Medications:?? Objective: Assessment: * Assessment: 1.??Hyperlipidemia, unspecif ied - E78.5??2.??Essential (primary) hypertension - I10??3.??Benign prostatic hyperplasia with lower urinary tract symptoms - N40.1??4.??Adult general medical exam - Z00.00??5.??Morbid obesity - E66.01??6.??Vitamin D deficiency - E55.9?? Plan: * Treatment: 2.??Benign prostatic hyperpl diana with lower urinary tract symptoms?LAB: PSA (FREE AND TOTAL) 3.??Adult general medical ex am?LAB: COMPREHENSIVE METABOLIC PANEL ?LAB: CBC (INCLUDES DIFF/PLT) ?LAB: URINALYSIS, COMPLETE W/REFLEX TO CULTURE ?LAB: TSH 4.??Morbid obesity?LAB: COMPREHENSIVE METABOLIC PANEL ?LAB: CBC (INCLUDES DIFF/PLT) 5.??Vitamin D deficiency?LAB: VITAMIN D,25-OH,TOTAL,IA * Procedure Codes:?? * true * Date:??
--- OUTSIDE RECORDS SUMMARY | 2024-05-29 12:42 | XMS_ITS ---
Author Name [facility] Organization Unknown History of Medication Use Medication Directions Dispensed Refills Start Date End Date Stat hydrocortisone (ANUSOL-HC) 2.5 % rectal cream Insert into the rectum 2 (two) times a day for 7 days. Do not use longer than 7 days in a row. 04/15/2024 active fluticasone propionate (FLONASE) 50 mcg/actuation nasal spray USE 1-2 SPRAYS BY INTRANASAL ROUTE EVERY DAY IN EACH NOSTRIL NEEDED 05/25/2023 active aspirin 81 mg chewable tablet Chew 1 tablet (81 mg total). active atorvastatin (LIPITOR) 40 mg tablet Take 1 tablet (40 mg total) by mouth. active cetirizine (ZyrTEC) 10 mg capsule Take by mouth. active cholecalciferol (VITAMIN D-3) 5,000 Units tablet Take 1,000 Units by mouth daily. active omeprazole (PriLOSEC) [address] capsule Take 1 capsule (20 mg total) by mouth daily. active polyvinyl alcohol-povidone, PF, (ARTIFICIAL TEARS) 1.4-0.6 % ophthalmic solution as needed for Dryness active Problems Problem Status Onset Date Problem Type Date of Resolution Source Bleeding active EncounterDiagnosisAct [facility]NEMG Rectal bleeding active EncounterDiagnosisAct [facility] Incomplete defecation active EncounterDiagnosisAct [facility]_THN [facility] Grade II internal hemorrhoids active EncounterDiagnosisAct [facility]_THN [facility]G Encounters Encounter Type Encounter Reason Primary Diagnosis Location Date Ambulatory Rectal Bleeding Hemorrhage of an us and rectum [facility] 04/15/2024 Care Team Organization Name Specialty Phone Email Start Date End Da te [facility] Vishnu Johnson Primary Care 12/2024 [facility] Vishnu Johnson Primary Care 12/2024 [facility] 04/05/2024
--- OUTSIDE RECORDS SUMMARY | 2024-05-29 12:43 | XMS_ITS | Clinical Summary ---
Author Organization [facility] Address [address] [place] [address] Care Team Providers Care Tool Polisher Name Role Phone Vishnu Johnson MD Primary Care Provider [phone] Medications aspirin 81 mg chewable tablet Chew 1 tablet (81 mg total). Active atorvastatin (LIPITOR) 40 mg tablet Take 1 tablet (40 mg total) by mouth. Active cetirizine (ZyrTEC) 10 mg capsule Take by mouth. Activ e cholecalciferol (VITAMIN D-3) 5,000 Units tablet Take 1,000 Units by mouth daily. Active fluticasone propionate (FLONASE) 50 mcg/actuation nasal spray USE 1-2 SPRAYS BY INTRANASAL ROUTE EVERY DAY IN EACH NOSTRIL NEEDED 4 Active omeprazole (PriLOSEC) [address] capsule Take 1 capsule (20 mg total) by mouth daily. Active polyvinyl alcohol-povidon e, PF, (ARTIFICIAL TEARS) 1.4-0.6 % ophthalmic solution as needed for Dryness Active hydrocortisone (ANUSOL-HC) 2.5 % rectal cream Insert into the rectum 2 (two) times a day for 7 days. Do not use longer than 7 days in a row. 28 g 1 5 Active Encounters Date Type Department Care Team Description 04/15/2024 4:00 PM EDT Office Visit [facility] [address] [place] [address] Adamaris Landeros PA Rectal bleeding (Primary Dx); Bleeding; Grade II internal hemorrhoids; Incomplete defecation from Last 3 Months Surgical History Surgery Date Site/Laterality Comments CARPAL TUNNEL RELEASE PROSTATECTOMY TOTAL KNEE ARTHROPLASTY Medical History Medical History Date Comments Prostate cancer ([facility] V24, [facility] V28) HLD (hyperlipidemia) GERD (gastroesophageal reflux disease) Social History Tobacco Use Types Packs/Day Years Used Date Smoking Tobacco: Never Smokeless Tobacco: Never Tobacco Cessation:Counseling Given: Not Answered Alcohol Use Standard Drinks/Week Comments Yes 0 (1 standard drink = 0.6 oz pur e alcohol) Sex and Gender Information Value Date Recorded Sex Assigned at Not on file Legal Sex Male 11:19 AM EST Gender Identity Not on file Sexual Orientation Not on file Obstetrics History Last Filed Vital Signs Vital Sign Reading Time Taken Comments Blood Pressure 122/72 04/15/2024 4:07 PM EDT Pulse - - Temperature - - Respiratory Rate - - Oxygen Saturation - - Inhaled Oxygen Concentration - - Weight 95.7 kg (211 lb) 04/15/2024 4:07 PM EDT Height 177.8 cm (5' 10 ) 04/15/2024 4:07 PM EDT Body Mass Index 30.28 04/15/2024 4:07 PM EDT Plan of Treatment Health Maintenance Due Date Last Done Comments COVID-19 Vaccine (#1) 1955 DTaP,Tdap,and Td Vaccines (1 - Tdap) 11/04/1971 Zoster Vaccines (1 of 2) 11/04/1971 Pneumococcal Vaccine: 50+ Years (2 of 2 - PCV) 05/31/2019 05/30/2018 Cholesterol Screening (Lipid Panel) 01/04/2022 Colorectal Cancer Screening: Colonoscopy 01/04/2022 Depression Screening 01/04/2022 Falls Risk Assessment 01/04/2022 Hepatitis C Screening 01/04/2022 Social Influencers of Health Screening 01/04/2022 Medicare Annual Wellness Visit 11/22/2022 11/22/2021 Influenza Vaccine (Season Ended) 2024 11/22/2021, 11/05/2020, 12/10/2019, Additional history exists RSV Immunization Adult Patients (1 - 1-dose 75+ series) 11/04/2027 HIB Vaccines Aged Out No longer eligi ble based on patient's age to complete this topic HPV Vaccines Aged Out No longer eligi ble based on patient's age to complete this topic Hepatitis A Vaccines Aged Out No long er eligible based on patient's age to complete this topic Hepatitis B Vaccines Aged Out No long er eligible based on patient's age to complete this topic IPV Vaccines Aged Out No longer eligi ble based on patient's age to complete this topic MMR Vaccines Aged Out No longer eligi ble based on patient's age to complete this topic Meningococcal ACWY Vaccine Aged Out N o longer eligible based on patient's age to complete this topic Meningococcal B Vaccine Aged Out No l onger eligible based on patient's age to complete this topic RSV Immunization Patients Under 20 months Aged Out No longer eligible based on patient's age to complete this topic Varicella Vaccines Aged Out No longer eligible based on patient's age to complete this topic Insurance MEDICARE [facility] Advance Directives Documents on File Type Date Recorded Patient Complementary Health Therapists Expl anation Health Care Decision (hx) 02/14/2019 AD DELACRUZ DIRECTIVE Health Care Decision (hx) 02/14/2019 AD DELACRUZ DIRECTIVE Care Teams Tool Polisher Relationship Specialty Start Date End Date Vishnu Johnson MD [address] [place] [id number] PCP - General Internal Medicine 04/12/24
--- OUTSIDE RECORDS SUMMARY | 2024-05-29 12:43 | XMS_ITS | Patient Health Record ---
Author Organization [facility] Address [address] [place] [address] Care Team Providers Care Vp Informatics Name Role Phone ZHEN JOHNSON Primary Care Provider [phone] Raven Goff Unavailable [phone] MAYNORSACHIN Diamond Unavailable [phone] ALLERGIES No Known Allergies RESULTS Component Value Reference Range Notes [id number]-[id number] Reviewed date:03/26/2024 11:25:23 AM Interpretation: Performing Lab:[facility] [place], [address] [facility], Phone - [phone], Director - MDJodry Notes/Report: TSH 1.970 0.450-4.500 uIU/mL CBC With Differential/Platel et-[id number] Reviewed date:03/26/2024 11:25:23 AM Interpretation: Performing Lab:[facility] [place], [address] [facility], Phone - [phone], Director - MDJodry Notes/Report: WBC 5.5 3.4-10.8 x10E3/uL RBC 5.51 4.14-5.80 x10E6/uL Hemoglobin 16.7 13.0-17.7 g/dL Hematocrit 50.6 37.5-51.0 % MCV 92 79-97 fL MCH 30.3 26.6-33.0 pg MCHC 33.0 31.5-35.7 g/dL RDW 12.9 11.6-15.4 % Platelets 158 150-450 x10E3/uL Neutrophils 59 Not Estab. % Lymphs 28 Not Estab. % Monocytes 9 Not Estab. % Eos 4 Not Estab. % Basos 0 Not Estab. % Immature Cells Neutrophils (Absolute) 3.2 1.4-7.0 x10E3/uL Lymphs (Absolute) 1.6 0.7-3.1 x10E3/uL Monocytes(Absolute) 0.5 0.1-0.9 x10E3/uL Eos (Absolute) 0.2 0.0-0.4 x10E3/uL Baso (Absolute) 0.0 0.0-0.2 x10E3/uL Immature Granulocytes 0 Not Estab. % Immature Grans (Abs) 0.0 0.0-0.1 x10E3/uL NRBC Hematology Comments: Vitamin D, 40-Hhjzjnq-[id number] Reviewed date:03/26/2024 11:25:23 AM Interpretation: Performing Lab:[facility], [address] [place] [address], Phone - [phone], Director - Eugene Notes/Report: Vitamin D, 25-Hydroxy 31.0 30.0-100.0 ng/mL Vitamin D deficiency has been defined by the [place] of [employer] and an Endocrine Society practice guideline as a level of serum 25-OH vitamin D less than 20 ng/mL (1,2). The Endocrine Society went on to further define vitamin D insufficiency as a level between 21 and 29 ng/mL (2). 1. IOM ([place] of [employer]). 2010. Dietary reference intakes for calcium and D. [place]: The National Academies Press. 2. Isiah MF, Brianna NC, Abdelrahman YOUNG, et al. Evaluation, treatment, and prevention of vitamin D deficiency: an Endocrine Society clinical practice guideline. JCEM. 2010; 96(7):1911-30. Lipid Panel-[id number] Reviewed date:03/26/2024 11:25:23 AM Interpretation: Performing Lab:[facility], [address] [place] [address], [place], Phone - [phone], Director - Eugene Notes/Report: Cholesterol, Total 148 100-199 mg/dL Triglycerides 105 0-149 mg/dL HDL Cholesterol 42 >39 mg/dL VLDL Cholesterol Konstantin 19 5-40 mg/dL LDL Chol Calc ([facility]) 87 0-99 mg/dL LDL Calc Comment: Lipid Panel-[id number] Reviewed date:08/22/2023 08:43:22 AM Interpretation: Performing Lab:[facility], [address] [place] [address], [place], Phone - [phone], Director - MDJodry Notes/Report: Cholesterol, Total 122 100-199 mg/dL Triglycerides 102 0-149 mg/dL HDL Cholesterol 38 >39 mg/dL VLDL Cholesterol Konstantin 19 5-40 mg/dL LDL Chol Calc ([facility]) 65 0-99 mg/dL LDL Calc Comment: Be Smart CMP14 Default A hand-written panel/profile was received from your office. In accordance with the [facility] Ambiguous Test Code Policy dated August 2002, we have completed your order by using the closest currently or formerly recognized AMA panel. We have assigned Comprehensive Metabolic Panel (14), Test Code #758838 to this request. If this is not the testing you wished to receive on this specimen, please contact the [employer] Client Inquiry/Technical Services Department to clarify the test order. We appreciate your business. Comp. Metabolic Panel (14)- Reviewed date:08/22/2023 08:44:01 AM Interpretation: Performing Lab:[facility], [address] [place], [place], Phone - [phone], Director - Eugene Notes/Report: Glucose 105 70-99 mg/dL BUN 23 8-27 mg/dL Creatinine 1.08 0.76-1.27 mg/dL eGFR 74 >59 mL/min/1.73 BUN/Creatinine Ratio 21 10-24 Sodium 144 134-144 mmol/L Potassium 4.4 3.5-5.2 mmol/L Chloride 109 96-106 mmol/L Carbon Dioxide, Total 22 20-29 mmol/L Calcium 9.8 8.6-10.2 mg/dL Protein, Total 5.9 6.0-8.5 g/dL Albumin 4.0 3.9-4.9 g/dL Globulin, Total 1.9 1.5-4.5 g/dL Bilirubin, Total 0.5 0.0-1.2 mg/dL Alkaline Phosphatase 122 44-121 IU/L AST (SGOT) 22 0-40 IU/L ALT (SGPT) 24 0-44 IU/L Comp. Metabolic Panel (14)- Reviewed date:03/26/2024 11:25:23 AM Interpretation: Performing Lab:[facility], [address] [place], [place], Phone - [phone], Director - Eugene Notes/Report: Glucose 97 70-99 mg/dL BUN 17 8-27 mg/dL Creatinine 0.97 0.76-1.27 mg/dL eGFR 83 >59 mL/min/1.73 BUN/Creatinine Ratio 18 10-24 Sodium 143 134-144 mmol/L Potassium 4.7 3.5-5.2 mmol/L Chloride 105 96-106 mmol/L Carbon Dioxide, Total 22 20-29 mmol/L Calcium 10.2 8.6-10.2 mg/dL Protein, Total 6.4 6.0-8.5 g/dL Albumin 4.3 3.8-4.8 g/dL Globulin, Total 2.1 1.5-4.5 g/dL Bilirubin, Total 0.7 0.0-1.2 mg/dL Alkaline Phosphatase 116 44-121 IU/L AST (SGOT) 29 0-40 IU/L ALT (SGPT) 26 0-44 IU/L UA/M w/rflx Culture, Routine -[id number] Reviewed date:03/26/2024 11:25:23 AM Interpretation: Performing Lab:[facility], [address] [facility], Phone - [phone], Director - MDJodry Notes/Report: Specific [place] 1.022 1.005-1.030 pH 6.0 5.0-7.5 Urine-Color Yellow Yellow Appearance Clear Clear WBC Esterase Negative Negative Protein Negative Negative/Trace Glucose Negative Negative Ketones Negative Negative Occult Blood Negative Negative Bilirubin Negative Negative Urobilinogen,Semi-Qn 0.2 0.2-1.0 mg/dL Nitrite, Urine Negative Negative Microscopic Examination Micr oscopic follows if indicated. Microscopic Examination See below: Micr oscopic was indicated and was performed. Urinalysis Reflex This speci men will not reflex to a Urine Culture. WBC None seen 0 - 5 /hpf RBC None seen 0 - 2 /hpf Epithelial Cells (non renal) None seen 0 - 10 /hpf Epithelial Cells (renal) Casts None seen None seen /lpf Cast Type Crystals Crystal Type Mucus Threads Bacteria None seen None seen/Few Yeast Trichomonas Comment PSA Total+% Free-[id number] Reviewed date:03/26/2024 11:25:23 AM Interpretation: Performing Lab:[facility], [address] [facility], [place], Phone - [phone], Director - MDJodry Notes/Report: Prostate Specific Ag <0.1 0.0-4.0 ng/mL Melanie ECLIA methodology. . According to the [place] [employer], Serum PSA should decrease and remain at undetectable levels after radical prostatectomy. The AUA defines biochemical recurrence as an initial PSA value 0.2 ng/mL or greater followed by a subsequent confirmatory PSA value 0.2 ng/mL or greater. Values obtained with different assay methods or kits cannot be used interchangeably. Results cannot be interpreted as absolute evidence of the presence or absence of malignant disease. PSA, Free <0.02 N/A ng/mL Melanie ECLIA met hodology. % Free PSA TNP Unable to calculate result since non-numeric result obtained for component test. The table below lists the probability of prostate cancer for men with non-suspicious PENELOPE results and total PSA between 4 and 10 ng/mL, by patient age (Valentino et al, ELMA 1998, 279:1542). % Free PSA 50-64 yr 65-75 yr 0.00-10.00% 56% 55% 10.01-15.00% 24% 35% 15.01-20.00% 17% 23% 20.01-25.00% 10% 20% >25.00% 5% 9% Please note: Valentino et al did not make specific recommendations regarding the use of percent free PSA for any other population of men. [employer] Default Reviewed date:08/22/2023 08:42:49 AM Interpretation: Performing Lab:[facility], [address] [place] [address], [place], Phone - [phone], Director - Eugene Notes/Report: [employer] Default A hand-written panel/profile was received from your office. In accordance with the [facility] Ambiguous Test Code Policy dated August 2002, we have completed your order by using the closest currently or formerly recognized AMA panel. We have assigned Lipid Panel, Test Code #506883 to this request. If this is not the testing you wished to receive on this specimen, please contact the [facility] Client Inquiry/Technical Services Department to clarify the test order. We appreciate your business. REASON FOR REFERRAL Reason [facility] Diagnosis 1 Encounter for examin ation of ears and hearing without abnormal findings (Z01.10) Referral Organization [facility] Referring Provider First Name [facility] Referring Provider Last Name JOHNSON Referring Provider Speciality Internal M edicine Referred Provider Specialty Ear, nose an d throat surgeon General Notes Amber Contreras 11:24:06 AM > Referral and attachments faxed to [phone] and pt given phone [phone] to call and make an appt. Clinical Notes Debi Sierra 02:53:43 PM > Scheduled for 05/31 at 9:45 am. pt aware Referral Priority Routine Reason Colon and Rectal Gal [facility] ([facility]) Diagnosis 1 Bleeding (R58) Referral Organization [facility] Referring Provider First Name ZHEN Referring Provider Last Name JOHNSON Referring Provider Speciality Internal M edicine Referred Provider Specialty Colorectal S urgery General Notes Amber Contreras 11:27:09 AM > Referral and attachments faxed to [phone] and pt given phone [phone] to call and make an appt. Clinical Notes Debi Sierra 01:49:17 PM > Patient was seen on 04/15 Referral Priority Routine MEDICATIONS Medication SIG (Take, Route, Frequency, Duration) Notes Start Date End Date Status Omeprazole 20 MG TAKE 1 CAPSULE BY FL UT 30 MINUTES BEFORE MORNING MEAL every other day for 90 days Active Flonase Active Aspir-81 81 MG 1 tablet Orally Once a day for 30 day(s) Active Sildenafil Citrate 20 MG 1 tablet Orally Once a day Active D3 Super Strength 50 MCG (1999 UT) TAKE 1 CAPSULE BY MOUTH EVERY DAY for 90 Active ZyrTEC Allergy 10 MG 1 tablet Orally Onc e a day Active buPROPion HCl 75 MG 2 tablets Orally Onc e a day for 90 days 10/10/2023 Active Atorvastatin Calcium 40 MG TAKE 1 TABLET BY MOUTH EVERY DAY for 90 Active IMMUNIZATIONS Vaccine Route Administration Date Status Comme nts Flu vaccine no Preserv 3 and > IM Intramuscular 12/13/2017 Administered influenza IM Intramuscular 12/10/2019 Administered influenza IM Intramuscular 11/05/2020 Administered influenza IM Intramuscular 11/22/2021 Administered Influenza, high dose seasonal IM Intramuscular 11/28/2022 Administered Influenza, seasonal, injectable, preservative free, 3 yrs and above IM Intramuscular 12/06/2018 Administered Pneumococcal polysaccharide PPV23 IM Intramuscular 05/30/2018 Administered SOCIAL HISTORY Tobacco Use: Social History Observation Description Date Details (start date - stop date) Former Smoker NA - NA Sex Assigned At : Social History Observation Description Sex Assigned At Unknown Tobacco Use/Smoking Question Answer Notes Are you a former smoker Section Notes: does not smoke or abuse alco hol does not smoke or abuse alco hol does not smoke or abuse alco hol does not smoke or abuse alco hol does not smoke or abuse alco hol does not smoke or abuse alco hol does not smoke or abuse alco hol does not smoke or abuse alco hol does not smoke or abuse alco hol does not smoke or abuse alco hol does not smoke or abuse alco hol does not smoke or abuse alco hol does not smoke or abuse alco hol does not smoke or abuse alco hol PROBLEMS Problem Type ICD Code Onset Dates Problem Status W/U Status Risk SNOMED Code Notes Problem Other obesity (E66.8) Active confirmed Obesity (098943913) Problem Hyperlipidemia, unspecified (E78.5) Active confirmed Hyperlipidemia (74016937) Problem Obstructive sleep apnea (adult) (pediatric) (G47.33) Active confirmed Obstructive sle ep apnea syndrome (disorder) (17218188) Problem Essential (primary) hypertension (I10) Active confirmed Essential hypertension (44232678) Problem Encounter for general adult medical examination without abnormal findings (Z00.00) Active confirmed 013472685 Problem Encounter for examination of ears and hearing without abnormal findings (Z01.10) Active confirmed Problem Encounter for screening for lipoid disorders (Z13.220) Active confirmed 922190379 Problem Body mass index (BMI) 31.0-31.9, adult (Z68.31) Active confirmed Body mass ind ex 30.00 to 34.99 (213135948841460) Problem Body mass index (BMI) 40.0-44.9, adult (Z68.41) Active confirmed Body mass ind ex 40+ - severely obese (244599729) Problem Benign prostatic hyperplasia with lower urinary tract symptoms (N40.1) Active confirmed Lower urinary tract symptoms due to benign prostatic hypertrophy (32372298392954) Problem Morbid obesity (E66.01) Active confirmed Morbid obesity (530797173) Problem Prostate cancer (C61) Active confirmed Malignant tumor of prostate (203951845) Problem Seasonal allergies (J30.2) Active confirmed 902098713 Problem Vitamin D deficiency (E55.9) Active confirmed Vitamin D deficiency (49873183) Problem Tinnitus, unspecified laterality (H93.19) Active confirmed 18044594 Problem Accelerated essential hypertension (I10) Active confirmed Accelerated essential hypertension (96520261) Problem NISHA (obstructive sleep apnea) (G47.33) Active confirmed Obstructive sle ep apnea syndrome (41744258) Problem Bleeding (R58) Active confirmed Bleedin g (44534741) Problem Advance care planning (Z71.89) Active confirmed 134660044 Problem Body mass index [BMI] 30.0-30.9, adult (Z68.30) Active confirmed 210570973 Problem Hypolipidemia (E78.6) Active confirmed Hypolipidemia (804319652) VITAL SIGNS Heart Rate 73 /min 04/04/2024 Blood pressure diastolic 76 mm Hg 04/04/2024 Oximetry 98 % 04/04/2024 Height 70 in 04/04/2024 Blood pressure systolic 136 mm Hg 04/04/2024 Weight 213.7 lbs 04/04/2024 BMI 30.66 kg/m2 04/04/2024 Encounters Encounter Location Date Provider Diagnosis [facility] [address] 08/29/[address] [facility] [address] 11/28/2023 ZHEN JOHNSON [place] [address] 10/10/2023 ZHEN JOHNSON Depressed mood R45.8 9 ; Hyperlipidemia, unspecified E78.5 ; Adult general medical exam Z00.00 ; Other specified counseling Z71.89 ; Hemorrhoids, unspecified hemorrhoid type K64.9 ; History of gastroesophageal reflux (GERD) Z87.19 and Seasonal allergies J30.2 [facility] [address] [place] [address] 11/30/2023 SACHIN MCGUIRE Nasal congestion R09 .81 ; COVID-19 virus infection U07.1 and Hyperlipidemia, unspecified E78.5 [place] [address] [address] 04/04/2024 ZHEN JOHNSON Hypolipidemia E78.6 and Annual physical exam Z00.[address] [address] [place] [address] 08/31/2023 ZHEN JOHNSON [facility] [address] [place] [address] 11/30/[address] [place] [address] [place] [address] 01/05/[address] [place] [address] [address] [place] [address] 02/28/2024 ZHEN JOHNSON Hyperlipidemia, unspecified E78.5 ; Essential (primary) hypertension I10 ; Benign prostatic hyperplasia with lower urinary tract symptoms N40.1 ; Adult general medical exam Z00.00 ; Morbid obesity E66.01 and Vitamin D deficiency E55.9 [facility] [address] [place] [address] 03/21/2024 ZHEN JOHNSON ASSESSMENTS Encounter Date Diagnosis Assessment Notes Treatment Notes Treatment Clinical Notes Section Notes 10/10/2023 Hyperlipidemia, unspecified (ICD-10 - E78.5) 72 Y M with PMHx prostate cancer s/p prostatectomy, de Quervain tenosynovitis, osteoarthritis, NISHA, and basal cell carcinoma presents for a follow-up. Patient with concerns for hemorrhoids and a depressed mood. Physical exam unremarkable. Patient endorses increased bleeding and discomfort with hemorrhoids. Has had increased marital strain that has resulted in anhedonia and depressed mood. Assessment at this time is a well appearing 72 yr old M with multiple conditions that are all well managed. Plan is to follow up in 6 weeks. # Depressed Mood - Has had increased marital strain and life stressors resulting in depressed mood and anhedonia. - Seeking therapist referral or medications - start Bupropion HCl daily - call insurance to see coverage for therapist - will follow up in 6 weeks #Hemorrhoids - increased bleeding and discomfort - educated on sitz baths, stool softness, OTC hemorrhoid creams - discussed possible GI referral if no improvement in 6 weeks #Prostate Cancer s/p prostatectomy / ED - sees urology in November - has not used Viagra yet - continue Sildenafil Citrate 20 MG Tablet 1 tablet Orally Once a day as needed GERD - denies any symptoms - continue Omeprazole 20 MG Capsule #HLD - Continue Atorvastatin Calcium 40 MG Tablet #Cardiac Risk due to age - Continue Aspir-81 81 MG Tablet #Seasonal Allergies - Zyrtec Allergy 10 MG Tablet 1 tablet Orally Once a day. 10/10/2023 Depressed mood (ICD-10 - R45.89) 72 Y M with PMHx prostate cancer s/p prostatectomy, de Quervain tenosynovitis, osteoarthritis, NISHA, and basal cell carcinoma presents for a follow-up. Patient with concerns for hemorrhoids and a depressed mood. Physical exam unremarkable. Patient endorses increased bleeding and discomfort with hemorrhoids. Has had increased marital strain that has resulted in anhedonia and depressed mood. Assessment at this time is a well appearing 72 yr old M with multiple conditions that are all well managed. Plan is to follow up in 6 weeks. # Depressed Mood - Has had increased marital strain and life stressors resulting in depressed mood and anhedonia. - Seeking therapist referral or medications - start Bupropion HCl daily - call insurance to see coverage for therapist - will follow up in 6 weeks #Hemorrhoids - increased bleeding and discomfort - educated on sitz baths, stool softness, OTC hemorrhoid creams - discussed possible GI referral if no improvement in 6 weeks #Prostate Cancer s/p prostatectomy / ED - sees urology in November - has not used Viagra yet - continue Sildenafil Citrate 20 MG Tablet 1 tablet Orally Once a day as needed GERD - denies any symptoms - continue Omeprazole 20 MG Capsule #HLD - Continue Atorvastatin Calcium 40 MG Tablet #Cardiac Risk due to age - Continue Aspir-81 81 MG Tablet #Seasonal Allergies - Zyrtec Allergy 10 MG Tablet 1 tablet Orally Once a day. 11/30/2023 Nasal congestion (ICD-10 - R09.81) Caleb is a 73 year old male who tested positive for COVID today at home, states he has daria feeling mild congestion, intermittent headaches and post nasal drip. Patient educated to hold his atorvastatin while on this medication. Patient encouraged to call the office if he is not feeling better within the next few days. Patient encouraged to finish the entirety of the anti viral, and to stay isolated until he is 24 hours symptom free. #COVID: Tested positive for COVID at home, patient advisied to hold his Atorvastatin until he finishes Paxlovid. All questions have been answered to patient's satisfaction. Patient verbalized understanding of diagnosis and treatments explained. Advised to call sooner prior to next visit it any questions/concerns arise. Case discussed with collaborating physician Pinky Johnson who reviewed the assessment and plan. Chart, medications, labs, vital signs reviewed. Dictation was accomplished with the use of [employer] voice recognition software, which is prone to medical misidentifications and grammatical errors. This are unintentional and the practitioner does try to identify and correct these, but some could still be present. Please do not hesitate to contact practitioner for clarification. 11/30/2023 COVID-19 virus infection (ICD-10 - U07.1) Caleb is a 73 year old male who tested positive for COVID today at home, states he has daria feeling mild congestion, intermittent headaches and post nasal drip. Patient educated to hold his atorvastatin while on this medication. Patient encouraged to call the office if he is not feeling better within the next few days. Patient encouraged to finish the entirety of the anti viral, and to stay isolated until he is 24 hours symptom free. #COVID: Tested positive for COVID at home, patient advisied to hold his Atorvastatin until he finishes Paxlovid. All questions have been answered to patient's satisfaction. Patient verbalized understanding of diagnosis and treatments explained. Advised to call sooner prior to next visit it any questions/concerns arise. Case discussed with collaborating physician Pinky Johnson who reviewed the assessment and plan. Chart, medications, labs, vital signs reviewed. Dictation was accomplished with the use of [employer] voice recognition software, which is prone to medical misidentifications and grammatical errors. This are unintentional and the practitioner does try to identify and correct these, but some could still be present. Please do not hesitate to contact practitioner for clarification. 02/28/2024 Hyperlipidemia, unspecified (ICD-10 - E78.5) 04/04/2024 Annual physical exam (ICD-10 - Z00.00) [...] log exercise and discussed fitness Apps like [employer] which can help keep log off calories [...] prostate cancer and PSA was undetectable 04/04/2024 Hypolipidemia (ICD-10 - E78.6) He patient [...] log exercise and discussed fitness Apps like [employer] which can help keep log off calories [...] of prostate cancer and PSA was undetectable 02/28/2024 Essential (primary) hypertension (ICD-10 - I10) 11/30/2023 Hyperlipidemia, unspecified (ICD-10 - E78.5) Caleb is a 73 year old male who tested positive for COVID today at home, states he has daria feeling mild congestion, intermittent headaches and post nasal drip. Patient educated to hold his atorvastatin while on this medication. Patient encouraged to call the office if he is not feeling better within the next few days. Patient encouraged to finish the entirety of the anti viral, and to stay isolated until he is 24 hours symptom free. #COVID: Tested positive for COVID at home, patient advisied to hold his Atorvastatin until he finishes Paxlovid. All questions have been answered to patient's satisfaction. Patient verbalized understanding of diagnosis and treatments explained. Advised to call sooner prior to next visit it any questions/concerns arise. Case discussed with collaborating physician Pinky Johnson who reviewed the assessment and plan. Chart, medications, labs, vital signs reviewed. Dictation was accomplished with the use of [employer] voice recognition software, which is prone to medical misidentifications and grammatical errors. This are unintentional and the practitioner does try to identify and correct these, but some could still be present. Please do not hesitate to contact practitioner for clarification. 10/10/2023 Adult general medical exam (ICD-10 - Z00.00) 72 Y M with PMHx prostate cancer s/p prostatectomy, de Quervain tenosynovitis, osteoarthritis, NISHA, and basal cell carcinoma presents for a follow-up. Patient with concerns for hemorrhoids and a depressed mood. Physical exam unremarkable. Patient endorses increased bleeding and discomfort with hemorrhoids. Has had increased marital strain that has resulted in anhedonia and depressed mood. Assessment at this time is a well appearing 72 yr old M with multiple conditions that are all well managed. Plan is to follow up in 6 weeks. # Depressed Mood - Has had increased marital strain and life stressors resulting in depressed mood and anhedonia. - Seeking therapist referral or medications - start Bupropion HCl daily - call insurance to see coverage for therapist - will follow up in 6 weeks #Hemorrhoids - increased bleeding and discomfort - educated on sitz baths, stool softness, OTC hemorrhoid creams - discussed possible GI referral if no improvement in 6 weeks #Prostate Cancer s/p prostatectomy / ED - sees urology in November - has not used Viagra yet - continue Sildenafil Citrate 20 MG Tablet 1 tablet Orally Once a day as needed GERD - denies any symptoms - continue Omeprazole 20 MG Capsule #HLD - Continue Atorvastatin Calcium 40 MG Tablet #Cardiac Risk due to age - Continue Aspir-81 81 MG Tablet #Seasonal Allergies - Zyrtec Allergy 10 MG Tablet 1 tablet Orally Once a day. 10/10/2023 Other specified counseling (ICD-10 - Z71.89) 72 Y M with PMHx prostate cancer s/p prostatectomy, de Quervain tenosynovitis, osteoarthritis, NISHA, and basal cell carcinoma presents for a follow-up. Patient with concerns for hemorrhoids and a depressed mood. Physical exam unremarkable. Patient endorses increased bleeding and discomfort with hemorrhoids. Has had increased marital strain that has resulted in anhedonia and depressed mood. Assessment at this time is a well appearing 72 yr old M with multiple conditions that are all well managed. Plan is to follow up in 6 weeks. # Depressed Mood - Has had increased marital strain and life stressors resulting in depressed mood and anhedonia. - Seeking therapist referral or medications - start Bupropion HCl daily - call insurance to see coverage for therapist - will follow up in 6 weeks #Hemorrhoids - increased bleeding and discomfort - educated on sitz baths, stool softness, OTC hemorrhoid creams - discussed possible GI referral if no improvement in 6 weeks #Prostate Cancer s/p prostatectomy / ED - sees urology in November - has not used Viagra yet - continue Sildenafil Citrate 20 MG Tablet 1 tablet Orally Once a day as needed GERD - denies any symptoms - continue Omeprazole 20 MG Capsule #HLD - Continue Atorvastatin Calcium 40 MG Tablet #Cardiac Risk due to age - Continue Aspir-81 81 MG Tablet #Seasonal Allergies - Zyrtec Allergy 10 MG Tablet 1 tablet Orally Once a day. 02/28/2024 Benign prostatic hyperplasia with lower urinary tract symptoms (ICD-10 - N40.1) 02/28/2024 Adult general medical exam (ICD-10 - Z00.00) 10/10/2023 Hemorrhoids, unspecified hemorrhoid type (ICD-10 - K64.9) 72 Y M with PMHx prostate cancer s/p prostatectomy, de Quervain tenosynovitis, osteoarthritis, NISHA, and basal cell carcinoma presents for a follow-up. Patient with concerns for hemorrhoids and a depressed mood. Physical exam unremarkable. Patient endorses increased bleeding and discomfort with hemorrhoids. Has had increased marital strain that has resulted in anhedonia and depressed mood. Assessment at this time is a well appearing 72 yr old M with multiple conditions that are all well managed. Plan is to follow up in 6 weeks. # Depressed Mood - Has had increased marital strain and life stressors resulting in depressed mood and anhedonia. - Seeking therapist referral or medications - start Bupropion HCl daily - call insurance to see coverage for therapist - will follow up in 6 weeks #Hemorrhoids - increased bleeding and discomfort - educated on sitz baths, stool softness, OTC hemorrhoid creams - discussed possible GI referral if no improvement in 6 weeks #Prostate Cancer s/p prostatectomy / ED - sees urology in November - has not used Viagra yet - continue Sildenafil Citrate 20 MG Tablet 1 tablet Orally Once a day as needed GERD - denies any symptoms - continue Omeprazole 20 MG Capsule #HLD - Continue Atorvastatin Calcium 40 MG Tablet #Cardiac Risk due to age - Continue Aspir-81 81 MG Tablet #Seasonal Allergies - Zyrtec Allergy 10 MG Tablet 1 tablet Orally Once a day. 10/10/2023 History of gastroesophageal reflux (GERD) (ICD-10 - Z87.19) 72 Y M with PMHx prostate cancer s/p prostatectomy, de Quervain tenosynovitis, osteoarthritis, NISHA, and basal cell carcinoma presents for a follow-up. Patient with concerns for hemorrhoids and a depressed mood. Physical exam unremarkable. Patient endorses increased bleeding and discomfort with hemorrhoids. Has had increased marital strain that has resulted in anhedonia and depressed mood. Assessment at this time is a well appearing 72 yr old M with multiple conditions that are all well managed. Plan is to follow up in 6 weeks. # Depressed Mood - Has had increased marital strain and life stressors resulting in depressed mood and anhedonia. - Seeking therapist referral or medications - start Bupropion HCl daily - call insurance to see coverage for therapist - will follow up in 6 weeks #Hemorrhoids - increased bleeding and discomfort - educated on sitz baths, stool softness, OTC hemorrhoid creams - discussed possible GI referral if no improvement in 6 weeks #Prostate Cancer s/p prostatectomy / ED - sees urology in November - has not used Viagra yet - continue Sildenafil Citrate 20 MG Tablet 1 tablet Orally Once a day as needed GERD - denies any symptoms - continue Omeprazole 20 MG Capsule #HLD - Continue Atorvastatin Calcium 40 MG Tablet #Cardiac Risk due to age - Continue Aspir-81 81 MG Tablet #Seasonal Allergies - Zyrtec Allergy 10 MG Tablet 1 tablet Orally Once a day. 02/28/2024 Morbid obesity (ICD-10 - E66.01) 02/28/2024 Vitamin D deficiency (ICD-10 - E55.9) 10/10/2023 Seasonal allergies (ICD-10 - J30.2) 72 Y M with PMHx prostate cancer s/p prostatectomy, de Quervain tenosynovitis, osteoarthritis, NISHA, and basal cell carcinoma presents for a follow-up. Patient with concerns for hemorrhoids and a depressed mood. Physical exam unremarkable. Patient endorses increased bleeding and discomfort with hemorrhoids. Has had increased marital strain that has resulted in anhedonia and depressed mood. Assessment at this time is a well appearing 72 yr old M with multiple conditions that are all well managed. Plan is to follow up in 6 weeks. # Depressed Mood - Has had increased marital strain and life stressors resulting in depressed mood and anhedonia. - Seeking therapist referral or medications - start Bupropion HCl daily - call insurance to see coverage for therapist - will follow up in 6 weeks #Hemorrhoids - increased bleeding and discomfort - educated on sitz baths, stool softness, OTC hemorrhoid creams - discussed possible GI referral if no improvement in 6 weeks #Prostate Cancer s/p prostatectomy / ED - sees urology in November - has not used Viagra yet - continue Sildenafil Citrate 20 MG Tablet 1 tablet Orally Once a day as needed GERD - denies any symptoms - continue Omeprazole 20 MG Capsule #HLD - Continue Atorvastatin Calcium 40 MG Tablet #Cardiac Risk due to age - Continue Aspir-81 81 MG Tablet #Seasonal Allergies - Zyrtec Allergy 10 MG Tablet 1 tablet Orally Once a day. PLAN OF TREATMENT Pending Test Test Name Order Date Lipid Panel 05/30/2018 Comp. Metabolic Panel (14) 05/30/2018 CBC 05/30/2018 CBC (COMPLETE BLOOD COUNT) 09/02/2019 CBC (COMPLETE BLOOD COUNT) 11/05/2020 COMPREHENSIVE METABOLIC PANEL 09/02/2019 COMPREHENSIVE METABOLIC PANEL 11/05/2020 COMPREHENSIVE METABOLIC PANEL 02/28/2023 HEMOGLOBIN A1C 11/05/2020 HEMOGLOBIN A1C 09/02/2019 LIPID PANEL 09/02/2019 LIPID PANEL 11/05/2020 LIPID PANEL 02/28/2023 URINALYSIS, COMPLETE 11/05/2020 URINALYSIS, COMPLETE 09/02/2019 LIPID PANEL, STANDARD 05/12/2021 LIPID PANEL, STANDARD 11/28/2022 LIPID PANEL, STANDARD 02/28/2024 LIPID PANEL, STANDARD 11/22/2021 LIPID PANEL, STANDARD 05/04/2022 COMPREHENSIVE METABOLIC PANEL 05/04/2022 COMPREHENSIVE METABOLIC PANEL 11/22/2021 COMPREHENSIVE METABOLIC PANEL 04/04/2024 COMPREHENSIVE METABOLIC PANEL 02/28/2024 COMPREHENSIVE METABOLIC PANEL 05/12/2021 BASIC METABOLIC PANEL 11/28/2022 CBC (INCLUDES DIFF/PLT) 05/12/2021 CBC (INCLUDES DIFF/PLT) 02/28/2024 CBC (INCLUDES DIFF/PLT) 04/04/2024 CBC (INCLUDES DIFF/PLT) 11/22/2021 CBC (INCLUDES DIFF/PLT) 05/04/2022 URINALYSIS, COMPLETE 11/22/2021 URINALYSIS, COMPLETE 05/04/2022 URINALYSIS, COMPLETE 05/12/2021 URINALYSIS, COMPLETE W/REFLEX TO CULTURE 02/28/2024 PSA (FREE AND TOTAL) 02/28/2024 TSH 02/28/2024 VITAMIN D,25-OH,TOTAL,IA 02/28/2024 Next Appt Details Provider Name:NINFA HERCULES, 09/25/2024 08:00:00 AM, [address] [facility], [address], [place], [address], Insurance Providers Payer Name Payer Address Payer Phone Subscriber Number Group Number Insured Name Patient Relationship to Insured Coverage Start Date Coverage End Date Medicare Part B J14 [address] kristi Thayer [id number] CALEB MACARIO Self - patient is the insured [facility] [address] [place] [phone] [id number] CALEB MACARIO Self - patient is the insured 4 MEDICAL (GENERAL) HISTORY Medical History History ICD Code hyperlipidemia acid reflux prostate ca Surgical History Surgery Date(Month/Year) carpal tunnel release colonoscopy Dr Antonio repeat 10 yrs 0 07/14/2008
--- OUTSIDE RECORDS SUMMARY | 2024-05-29 12:43 | XMS_ITS ---
Author Organization [facility] Address [address] [place] [address] Care Team Providers Care Linen Sorter Name Role Phone ZHEN JARRETT Primary Care Provider REASON FOR VISIT CCM - colo, dexa Encounters Encounter Location Date Provider Diagnosis [facility] [address] [place] [address] 03/21/2024 ZHEN JARRETT PLAN OF TREATMENT Next Appt Details Provider Name:NINFA HERCULES, 09/25/2024 08:00:00 AM, [address] [facility], [facility] [address], [place], [address], Progress Notes * SARWAT JUAREZ WDOB:[birth year] (73 yo M)Acc No.[id number]:03/21/2024 Patient:??SARWAT JUAREZ :1950?Age:73 Y?Sex:Javi tam Address:[address] [place] [address] * true * Date:??
== END 2024-05-29 11:24 | disposition home or self-care (01) ==
LOC: HO.HUSH 10:42
PROVIDERS: PCP Internal Medicine; Visit Provider Urology
DX: C61 Malignant neoplasm of prostate (principal); N52.31 Erectile dysfunction following radical prostatectomy
CPT/HCPCS: 99213; G2211

== ENCOUNTER → 2024-05-29 10:42 | Outpatient (BNVA) | payer MEDICARE, OTHER, SELFPAY | PROVIDERS: PCP Internal Medicine; Visit Provider Urology ==

== ENCOUNTER 2024-11-28 10:35 | Outpatient (AMB) | payer MEDICARE, OTHER, SELFPAY ==
--- NOTE | 2024-11-28 11:06 | A.OFFVIS_ITS ---
Intake Visit Reasons: 6m/PSA Intake Note: Patient is present for 6M follow up Urology Medication:SILDENAFIL Antibiotic Allergy:NONE Blood Thinner:NONE Labs done 11/20/24 PSA <0.1 Interior Design Coordinator Required: No Accompanied by: Self / Same As Patient Allergies No Known Allergies Allergy (Verified 11/28/24 11:07) HPI Comments Details: Bernabe is a very pleasant male. He is a patient of Dr. Johnson. He seen for the following urologic conditions - prostate cancer - erectile dysfunction Now on q.6 month surveillance PSA remains undetectable Good control of urination - actually thinks he has very good flow Due to pT3a disease will require six-month follow-up for 10 years Refill sildenafil Prostate cancer: Low volume disease, single intermediate core December 2019 robotic assisted prostatectomy June 2020 [facility] - pT3a unfavorable intermediate Initial therapy included Primary treatment ?Recent labs included 12/25 1.7, 05/26 1.8, 08/25 2.3, - 09/26 <0.1, 01/26 <0.1, 03/30 <0.05, 07/28 <0.1, 10/28 <0.1, 01/27 <0.1, 04/28 <0.1, 10/29 <0.1, 05/30 <0.1, 11/29 <0.1, 05/31 <0.1, 11/30 <0.1 Robotic assisted prostatectomy [facility] June 2020 [place] 4+3, negative margins, predominantly nerve-sparing pT3a margin at bladder neck Therapeutic plan: 6 month follow-up lab work Erectile dysfunction Post prostatectomy No longer relevant [facility] Medical History Arthritis Fatty liver Hyperlipidemia Elevated PSA Weak urinary stream Nocturia Benign prostatic hyperplasia with lower urinary tract symptoms Sleep apnea Surgical History History of surgery Review of Systems Const Denies chills and Denies fever(s) Card Reports no additional complaints and Denies syncope Resp Denies cough GI Denies abdominal pain and Denies heartburn Reports as per HPI and Denies change in libido Neuro Denies syncope Psych Denies change in libido Endo Denies change in libido Physical Exam Const General: cooperative, healthy appearing, comfortable and no acute distress Orientation/consciousness: patient oriented x3 HEENT Face and sinus: Yes normal facial exam Mouth: moist mucous membranes Neck Neck: Yes normal visual inspection, Yes full ROM and Yes trachea midline Chest Chest palpation & inspection: normal inspection of the chest Resp Effort & Inspection: normal respiratory effort, able to speak in complete sentences and no respiratory distress GI Inspection: Yes normal to inspection Back/Spine/Pelvis Cervical Spine: normal cervical lordosis Thoracic/Lumbar Spine: thoracic and lumbar spine normal to inspection Skin General skin exam: no rashes or lesions noted Neuro General: patient oriented x3, gait normal, tone normal and moves all extremities Extrem General: Yes normal to inspection and Yes capillary refill normal Assessment & Plan Assessment & Plan (1) Prostate CA: Comment: [place] 4 + 3 on robotic prostatectomy June 2020 Code(s): C61 - Malignant neoplasm of prostate Category: Medical (2) Erectile dysfunction after radical prostatectomy: Code(s): N52.31 - Erectile dysfunction following radical prostatectomy Category: Medical Plan Six-month follow-up PSA tele Orders: Orders Prostate Specific Antigen 6 Months C61 - Malignant neoplasm of prostate Medications: Changed From sildenafil (Viagra) administer 30 minutes to 4 hours before activity 100 mg PO DAILY PRN 15 tabs 3RF sexual activity N52.31 - Erectile dysfunction following radical prostatectomy To sildenafil (Viagra) administer 30 minutes to 4 hours before activity [id number] [facility] GroupGDRX Member [id number] 100 mg PO ONCE PRN 30 tabs 0RF sexual activity 30 days N52.31 - Erectile dysfunction following radical prostatectomy Patient Instructions: This note is constructed using voice recognition software. While every effort has been made to ensure accuracy gas engine operator generators errors may have been included. Imaging studies, laboratory and physical exam results were discussed and reviewed in detail. No major barriers to patient understanding were identified. An opportunity to ask questions regarding the treatment plan was provided. All questions were answered. The patient expressed understanding and agreement with the above treatment plan. The patient is aware they should contact our office by phone for worsening of their current condition or the appearance of new urologic symptoms. Compliance is encouraged with any medications and followup testing that is ordered. It is a privilege to participate in the urologic care of your patient. If you have any questions or concerns regarding treatment for the above conditions, or other urologic issues, please do not hesitate to contact me. The office telephone contact is [phone]. Sincerely, Dr Jerardo Hendrix MD, [facility] - Urology Compassionate Specialist Care for the Genitourinary System Coding Level of Care Code Est Pt Level 3 (83283) Complex EM visit Add On G2211 Diagnoses Prostate CA C61 Erectile dysfunction after radical prostatectomy N52.31
--- OUTSIDE RECORDS SUMMARY | 2024-11-28 12:46 | XMS_ITS ---
Author Name [facility] Organization Unknown History of Medication Use Medication [...] Date Problem Type Date of Resolution Source Incomplete defecation active EncounterDiagnosisAct CT_THN EMG Bleeding active EncounterDiagnosisAct CT_THNEMG Grade II internal hemorrhoids active EncounterDiagnosisAct CT_THN EMG Rectal bleeding active EncounterDiagnosisAct CT_THNEMG Encounters Encounter Type Encounter Reason Primary Diagnosis Location Date Ambulatory Rectal Ble[facility] Care Team Organization Name Specialty Phone Email Start Date End [facility] 2024 [facility] 12/2024 [facility] 12/2024 [facility] 04/05/2024 [facility] Vishnu Johnson [facility] 08/24/2023 [facility] Vishnu Johnson [facility] 06/13/2022
--- OUTSIDE RECORDS SUMMARY | 2024-11-28 12:46 | XMS_ITS | Encounter Summary ---
Author Organization [facility] Address [address] [place] [phone] Phone Care Team Providers Care Feather Curling Machine Operator Name Role Phone Pcp, Unknown Primary Care Provider Vishnu Chiu MD Primary Care Provider [phone] Reason for Referral * MRI/CAT Scan - Closed Specialty Diagnoses / Procedures Referred By Controsa maria t Referred To Contact Radiology Diagnoses Chest pain, unspecified type Procedures NC Myocardial Perfusion Exercise Multiple Juve Brooks MD Phone: tel: fax: [email or web address] Referral ID Status Reason Start Date Expiration Date Visits Re quested Visits Authorized [id number] Closed 01/06/2017 02/04/2017 1 1 Encounter Details Date Type Department Care Team (Latest Contact Info) Description 01/05/2017 Ancillary Orders [facility] [address] [facility] [facility] [address] [place] [address] Juve Brooks MD [address] [place] [phone] [email or web address] Chest pain, unspecified type Social History Tobacco Use Types Packs/Day Years Used Date Smoking Tobacco: Never Assessed Sex and Gender Information Value Date Recorded Sex Assigned at Not on file Legal Sex Male 9:40 AM EST Gender Identity Not on file Sexual Orientation Not on file documented as of this encounter Plan of Treatment Not on file documented as of this encounter Results * NC Myocardial Perfusion Exercise Multiple (01/18/2017 9:40 AM EST) Anatomical Region Laterality Modality Heart, Vascular Ultrasound Narrative 01/20/2017 1:49 PM EST Normal study. There is no evidence of myocardial infarction or ischemia. Normal LV size and function with no regional wall motion abnormalities. Very low likelihood of hemodynamically significant coronary artery disease. Low risk study for myocardial events or cardiac in the next two years. Study Quality Overall image quality is good. There are no artifacts present. NC Study Impression Left ventricular perfusion is normal. Interpretation of the study indicates that it is normal. This is a low risk study. There is no prior study for comparison. Stress Test Result Patient exercised for 10:54 minutes on a Trent protocol achieving 13.4 METs. Test terminated due to fatigue. Maximum heart rate achieved was 169 bpm which represents 108% of the MPHR. 1. Baseline EKG showed normal sinus rhythm. No ischemic EKG changes with exercise. 2. No chest pain. 3. Normal blood pressure response to exercise. Normal functional capacity for age. 4. Occasional PVCs and PACs noted. Conclusion: Normal stress test. Nuclear images pending and will be reported separately. Navya Jimenez NP Nuclear Cardiology Measurements End systolic (mL): 52 End diastolic (mL): 108 Ejection Fraction (%): 52 Ejection Fraction: Normal (50-69%) The left ventrical is functioning with normal perfusion quality. Patient was injected with 12.0mCi of Tc99m Sestamibi Lt AC IV during stress NC Conclusion Normal study. There is no evidence of myocardial infarction or ischemia. Normal LV size and function with no regional wall motion abnormalities. Very low likelihood of hemodynamically significant coronary artery disease. Low risk study for myocardial events or cardiac in the next two years. Perfusion Scoring Stress Summed Score: 0 Percent Normal: 0.00% The left ventricular perfusion is normal. Juve Brooks MD CV NM CARDIAC Final Result documented in this encounter Visit Diagnoses Diagnosis Chest pain, unspecified type Chest pain, unspecified type documented in this encounter Care Teams Feather Curling Machine Operator Relationship Specialty Start Date End Date Pcp, Unknown PCP - General 01/05/17 01/17/17 Vishnu Johnson MD [address] [place] [address] PCP - General Internal Medicine 01/18/17 documented as of this encounter Additional Source Comments The information contained in this document represents components of the legal health record. It is not the complete legal health record.[facility]
--- OUTSIDE RECORDS SUMMARY | 2024-11-28 12:46 | XMS_ITS | Clinical Summary ---
Author Organization [facility]erged With [facility] Address [address] [place] [phone] Phone Care Team Providers Care Boat Finisher Name Role Phone Vishnu Johnson MD Primary Care Provider Allergies No known active allergies Medications atorvastatin (LIPITOR) 40 MG tablet Take 40 mg by mouth daily. Active omeprazole (PRILOSEC) 20 MG capsule Take 20 mg by mouth daily. Active sildenafiL (REVATIO) 20 mg tablet Take 20 mg by mouth 3 (three) times a day. Active aspirin 81 MG EC tablet Take 81 mg by mouth daily. Active cholecalciferol (VITAMIN D3) 5,000 unit tablet Take 1,000 Units by mouth daily. Active VITAMIN D3 50 mcg (2,000 unit) capsule Take by mouth daily. 10/15/2021 Active aspirin 81 MG EC tablet Take 81 mg by mouth. 06/18/2020 Active cetirizine (ZYRTEC) 10 mg capsule Take by mouth. Active Hospital, Clinic, or Other Facility Administered Medication Ordered Dose Route Frequency Start Date End Date Status bupivacaine HCl (MARCAINE) 0.25% injection 2 mLIndications:Knee pain, bilateral 2 mL See Adm Inst See admin instructions 04/30/2021 Active triamcinolone acetonide (KENALOG-40) 40 mg/mL injection 80 mgIndications:Knee pain, bilateral 80 mg See Adm Inst See admin instructions 04/30/2021 Active lidocaine (XYLOCAINE) 1% injection 2 mLIndications:Knee pain, bilateral 2 mL See Adm Inst See admin instructions 04/30/2021 Active lidocaine (XYLOCAINE) 1% injection 2 mL 2 mL See Adm Inst See admin instructions 09/27/2021 Active triamcinolone acetonide (KENALOG-40) 40 mg/mL injection 40 mg 40 mg See Adm Inst See admin instructions 09/27/2021 Active ropivacaine (PF) (NAROPIN) 0.2% injection 2 mL 2 mL See Adm Inst See admin instructions 09/27/2021 Active Active Problems Problem Noted Date Diagnosed Date Primary osteoarthritis of both knees 11/23/2021 Overview (11/23/2021): Varus deformity, bilaterally Malignant neoplasm of prostate 09/25/2018 Social History Tobacco Use Types Packs/Day Years Used Date Smoking Tobacco: Never Smokeless Tobacco: Never Alcohol Use Standard Drinks/Week Comments Yes 0 (1 standard drink = 0.6 oz pur e alcohol) 1-2 a week Education Answer Date Recorded Are you interested in more education? Not on jeison e 06/03/2022 Are you concerned about learning? Not on file 06/03/2022 No 06/03/2022 No 06/03/2022 Digital Access Answer Date Recorded No 07/05/2022 No 07/05/2022 Reliable internet access at home? Not on file 07/05/2022 Device with a working camera? Not on file Sex and Gender Information Value Date Recorded Sex Assigned at Not on file Legal Sex Male 9:40 AM EST Gender Identity Not on file Sexual Orientation Not on file Last Filed Vital Signs Vital Sign Reading Time Taken Comments Blood Pressure 144/84 01/18/2017 9:40 AM EST Pulse 98 01/18/2017 9:40 AM EST Temperature - - Respiratory Rate - - Oxygen Saturation - - Inhaled Oxygen Concentration - - Weight 95.3 kg (210 lb 3.2 oz) 11/23/2021 10:14 AM EDT Height 179.1 cm (5' 10.5 ) 11/23/2021 10:14 AM E DT Body Mass Index 29.73 11/23/2021 10:14 AM EDT Plan of Treatment Health Maintenance Due Date Last Done Comments Adult Td,Tdap Booster 1950 LIPID PANEL 1950 DEPRESSION SCREENING 1964 HEPATITIS C SCREENING 1970 PNEUMOCOCCAL VACCINES (50+ y ears) (1 of 2 - PCV) 11/04/1971 ZOSTER VACCINES (1 of 2) 11/04/1971 COLOGUARD 1997 COLONOSCOPY 1997 COLORECTAL CANCER SCREENING 1997 FIT TEST 1997 FOBT 1997 SIGMOIDOSCOPY 1997 VIRTUAL COLONOSCOPY 1997 INFLUENZA VACCINE (#1) 2024 COVID-19 VACCINE (2 - 2024-2 6 season) 2024 04/23/2020 RSV VACCINE (1 - 1-dose 75+ series) 11/04/2027 SMOKING STATUS SCREENING (On ce After 26 Yrs) Completed 11/23/2021 HEPATITIS A VACCINES Aged Out No long er eligible based on patient's age to complete this topic HIB VACCINES Aged Out No longer eligi ble based on patient's age to complete this topic MENINGOCOCCAL VACCINES (ACWY) Aged Out No longer eligible based on patient's age to complete this topic MENINGOCOCCAL VACCINES (B) Aged Out N o longer eligible based on patient's age to complete this topic Medical Devices Not on file Insurance [facility] EXTENSION MEDICARE SUPPLEMENT MEDICARE PART A & B [employer] MEDICARE SUPPLEMENT MEDICARE PART A & B [employer] MEDICARE SUPPLEMENT MEDICARE PART A & B [facility] EXTENSION MEDICARE SUPPLEMENT MEDICARE PART A & B [facility] MEDICARE SUPPLEMENT MEDICARE PART A & B [facility] MEDICARE SUPPLEMENT MEDICARE PART A & B [employer] MEDICARE SUPPLEMENT MEDICARE PART A & [facility] PART A & B [facility] MEDICARE SUPPLEMENT MEDICARE PART A & B COUNTS INCLUDE 234 BEDS AT [facility] Care Teams Boat Finisher Relationship Specialty Start Date End Date Vishnu Johnson MD [address] [place] [id number] PCP - General Internal Medicine 01/18/17 Additional Source Comments The information contained in this document represents components of the legal health record. It is not the complete legal health record.[facility]ed With [facility]
--- OUTSIDE RECORDS SUMMARY | 2024-11-28 12:46 | XMS_ITS | Clinical Summary ---
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 28 g 1 5 Active Surgical History Surgery Date Site/Laterality Comments CARPAL TUNNEL RELEASE PROSTATECTOMY TOTAL KNEE ARTHROPLASTY Medical History Medical History Date Comments Prostate cancer ([facility] V24, [facility] V28) HLD (hyperlipidemia) GERD (gastroesophageal [...] Health Maintenance Due Date Last Done Comments Colorectal Cancer Screening: Colonoscopy 1950 COVID-19 Vaccine (#1) 1957 DTaP,Tdap,and Td Vaccines (1 - Tdap) 11/04/1971 Zoster Vaccines (1 of 2) 11/04/1971 Pneumococcal Vaccine: 50+ Years (2 of 2 - PCV) 05/31/2019 05/30/2018 Cholesterol Screening (Lipid Panel) 01/04/2022 Falls Risk Assessment 01/04/2022 Hepatitis C Screening 01/04/2022 Social Influencers of Health Screening 01/04/2022 Medicare Annual Wellness Visit 11/22/2022 Depression Screening 02/07/2024 Influenza Vaccine (#1) 2024 2, 11/05/2020, 12/10/2019, Additional history exists RSV Immunization [...] age to complete this topic Insurance MEDICARE [facility] Advance Directives Documents on File Type Date Recorded 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
== END 2024-11-28 11:35 | disposition home or self-care (01) ==
LOC: HO.HUSH 10:36
PROVIDERS: PCP Internal Medicine; Visit Provider Urology
DX: C61 Malignant neoplasm of prostate (principal); N52.31 Erectile dysfunction following radical prostatectomy
CPT/HCPCS: 99213; G2211

== ENCOUNTER → 2024-11-28 10:35 | Outpatient (BNVA) | payer MEDICARE, OTHER, SELFPAY | PROVIDERS: PCP Internal Medicine; Visit Provider Urology | DX: C61 Malignant neoplasm of prostate (principal); N52.31 Erectile dysfunction following radical prostatectomy | CPT/HCPCS: 99212 ==